=== PATIENT | female | born 1930 | race Caucasian/White ===

== ENCOUNTER → 2016-06-12 | Outpatient (CLI) | payer MEDICARE ==
--- NOTE | 2016-06-12 11:21 | XR ---
EXAMINATION TYPE: XR chest 2V DATE OF EXAM: 06/12/2016 10:48 AM COMPARISON: 09/24/2015 INDICATION: Short of breath, and carbon monoxide exposure TECHNIQUE: Single frontal view of the chest is obtained. FINDINGS: The heart size is enlarged. The pulmonary vasculature is normal. The lungs are clear. Degenerative changes are at the bilateral shoulders more so on the left. IMPRESSION: 1. Cardiomegaly.
== END | disposition home or self-care (01) ==
LOC: RADXRMAIN 10:31
PROVIDERS: ATTEND Internal Medicine
DX: I51.7 Cardiomegaly (principal); R06.02 Shortness of breath
CPT/HCPCS: 71020

== ENCOUNTER 2017-03-29 08:01 | Emergency (ER) | payer MEDICARE ==
[2017-03-29 08:18] VITALS: RESP 18
--- NOTE | 2017-03-29 08:29 | ED ---
General Adult HPI - General Chief complaint: Fall Stated complaint: FALL X 1 WEEK Time Seen by Provider: 03/29/17 08:13 Source: EMS, RN notes reviewed Mode of arrival: EMS Limitations: no limitations - History of Present Illness Initial comments: Patient is an 87-year-old female who presents emergency room today with a chief complaint of fall occurred one week ago. She states that she is currently in the process of moving to [place]. She states she's been carrying a lot of boxes. She does admit that she has some chronic left-sided weakness. She states that she's been going to physical therapy for this. She does not that she had a fall a week ago falling down on the left side. She states that she's been doing well over the last week but noticed that she's been having increased pain to the left hip area. She does admit that it's worse with certain movements with flexion at the left hip. She states seem to be worse today. Has been using Tylenol for the pain over the last week. Has not taken Tylenol yet today. She states she is comfortable when she is lying still. Denies any other complaints or injuries. Patient does admit that she is on blood thinner due to A. fib. Patient also admits to some pain to the left side of the ribs. She landed on the side as well. She denies any difficulty breathing. Denies any other complaints or symptoms. States worse with certain movements and on palpation. Patient denies any recent fever, chills, shortness of breath, chest pain, back pain, abdominal pain, nausea or vomiting, numbness or tingling, headaches or visual changes, or any other complaints. - Related Data Home Medications Medication Instructions Recorded Confirmed Diazepam [Valium] 2.5 mg PO HS 08/10/13 03/29/17 Multivitamin/Iron/Folic Acid 1 tab PO DAILY 08/10/13 03/29/17 [Centrum Complete Multivit Tab] amLODIPine BESYLATE [Norvasc] 5 mg PO DAILY 08/10/13 03/29/17 Imatinib Mesylate [Gleevec] 200 mg PO BID 04/24/14 03/29/17 Calcium Carb-Vit D 500Mg-200Un 1 tab PO BID 08/22/15 03/29/17 [Oscal 500+D] Acetaminophen Tab [Tylenol Tab] 500 mg PO BID 03/29/17 03/29/17 Apixaban [Eliquis] 2.5 mg PO BID 03/29/17 03/29/17 Bisacodyl [Dulcolax] 5 mg PO BID 03/29/17 03/29/17 Diclofenac Sodium/Misoprostol 1 tab PO DAILY 03/29/17 03/29/17 [Arthrotec 50 mg-200 Mcg Tab] Ferrous Sulfate [Feosol] 325 mg PO DAILY 03/29/17 03/29/17 Gabapentin [Neurontin] 100 mg PO DAILY 03/29/17 03/29/17 Previous Rx's Medication Instructions Recorded Psyllium Husk 100% [Metamucil 1 dose PO DAILY #0 04/30/14 Packet] Allergies Allergy/AdvReac Type Severity Reaction Status Date / Time Sulfa (Sulfonamide Allergy Severe Rapid Verified 03/29/17 08:31 Antibiotics) Heart Rate, high temperature Review of Systems ROS Statement: Those systems with pertinent positive or pertinent negative responses have been documented in the HPI. ROS Other: All systems not noted in ROS Statement are negative. 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 , melanoma, uses walker or wheelchair History of Any Multi-Drug Resistant Organisms: None Reported Past Surgical History: Back Surgery, Cholecystectomy, Hysterectomy, Orthopedic Surgery, Tonsillectomy Additional Past Surgical History / Comment(s): carpal tunnel marc, achilles tendon-rt, marc knee replacement, rt hip replacement, laminectomy, melanoma removed from back, left parotid gland, marc cataracts, nephrectomy Past Anesthesia/Blood Transfusion Reactions: Motion Sickness Past Psychological History: Anxiety Smoking Status: Never smoker Past Alcohol Use History: None Reported Past Drug Use History: None Reported - Past Family History Daughter(s) Family Medical History: Cancer Mother Family Medical History: Congestive Heart Failure (CHF) Additional Family Medical History / Comment(s): parkinsons General Exam - General Exam Comments Initial Comments: General: The patient is awake and alert, in no distress, and does not appear acutely ill. Neck: The neck is supple, there is no tenderness or JVD. Cardiovascular: There is a regular rate and rhythm. No murmur, rub or gallop is appreciated. Respiratory: Lungs are clear to auscultation, respirations are non-labored, breath sounds are equal. No wheezes, stridor, rales, or rhonchi. Musculoskeletal: Patient does have normal appearance of the left leg no obvious deformity. No swelling or bruising to the left side of ribs but is tender to palpation to the anterior lateral aspect of the left side of the lower ribs. Does have some mild tenderness into the groin and with a logroll maneuver of the left hip. No other bony tenderness. Sensations are intact pulses equal bilaterally 2+. Strength is 5/5. Neurological: A&O x 3. CN II-XII intact, There are no obvious motor or sensory deficits. Coordination appears grossly intact. Speech is normal. Skin: Skin is warm and dry and no rashes or lesions are noted. Psychiatric: Normal mood and affect. Limitations: no limitations Course Vital Signs 03/29/17 08:08 Temperature 97.4 F L Pulse Rate 57 L Respiratory 18 Rate Blood Pressure 183/83 O2 Sat by Pulse 99 Oximetry Medical Decision Making - Medical Decision Making Patient reexamined at this time shows no signs of distress. She is ambulatory here in emergency room. Patient's x-rays are negative. Will be discharged home advised continue Tylenol FAMILY doctor she has appointment Saturday. Advised return if any symptoms increase or worsen. Disposition Clinical Impression: Fall Disposition: HOME SELF-CARE Condition: Good Instructions: Fall Prevention (ED), Hip Pain (ED) Additional Instructions: Please use medication as discussed. Please follow-up with family doctor in the next 2 days of symptoms have not improved. Please return to emergency room if the symptoms increase or worsen or for any other concerns. Referrals: Oscar Martins MD [Primary Care Provider] - 1-2 days Time of Disposition: 10:13
--- NOTE | 2017-03-29 09:03 | XR ---
EXAMINATION TYPE: XR Hip LT and AP Pelvis DATE OF EXAM: 03/29/2017 COMPARISON: NONE HISTORY: Fall with left hip pain. TECHNIQUE: A single AP view of the pelvis is obtained. Two views of the left hip are obtained. FINDINGS: There is no acute fracture/dislocation evident in the pelvis. The overlying soft tissue appears unremarkable. Two views of left hip show no acute fracture or dislocation. No focal lytic or sclerotic lesion seen in the proximal left femur. Right hip arthroplasty is seen. Extensive degenerative changes of the l umbosacral junction are noted. Moderate arthropathy is noted of the left femoral acetabular joint. Th e overlying soft tissue is unremarkable. IMPRESSION: There is no acute fracture or dislocation in the pelvis or left hip.
--- NOTE | 2017-03-29 09:06 | XR ---
EXAMINATION TYPE: XR ribs LT w pa chest xray DATE OF EXAM: 03/29/2017 CLINICAL HISTORY: Fall and left-sided rib pain. TECHNIQUE: Single frontal view of the chest is obtained. Frontal and oblique views of the left ribs w ere also obtained. COMPARISON: 06/12/2016 FINDINGS: There is no focal air space opacity, pleural effusion, or pneumothorax seen. There is blanco ntration of the right hemidiaphragm. The cardiac silhouette size is within normal limits. No displace d fractures are seen of the osseous structures. Extensive degenerative changes are seen in the acromi o clavicular joints and glenohumeral joints. Generalized osseous demineralization is also noted. Ther e is a mild thoracic dextroconvex curvature. Cardiac silhouette is mildly enlarged. IMPRESSION: 1. No acute cardiopulmonary process. 2. No acute displaced fractures of the osseous structures.
[2017-03-29] MEDS ORDERED: ACETAMINOPHEN TAB 325 MG TAB PO STA (09:33)
[2017-03-29 10:45] VITALS: BP 135/65; PULSE 55; TEMP 97.3
== END 2017-03-29 10:44 | disposition home or self-care (01) ==
LOC: EC 08:01
DX: R07.81 Pleurodynia (principal); M25.552 Pain in left hip; R10.30 Lower abdominal pain, unspecified; R53.1 Weakness; I48.91 Unspecified atrial fibrillation; I10 Essential (primary) hypertension; M19.90 Unspecified osteoarthritis, unspecified site; F41.9 Anxiety disorder, unspecified; G62.9 Polyneuropathy, unspecified; Z86.73 Personal history of transient ischemic attack (TIA), and cerebral infarction without residual deficits; Z85.820 Personal history of malignant melanoma of skin; Z85.6 Personal history of leukemia; Z85.528 Personal history of other malignant neoplasm of kidney; Z79.1 Long term (current) use of non-steroidal anti-inflammatories (NSAID); Z79.01 Long term (current) use of anticoagulants; Z79.899 Other long term (current) drug therapy; Z88.2 Allergy status to sulfonamides; Z96.641 Presence of right artificial hip joint; W18.09XA Striking against other object with subsequent fall, initial encounter; Y92.009 Unspecified place in unspecified non-institutional (private) residence as the place of occurrence of the external cause
CPT/HCPCS: 73502; 99283

== ENCOUNTER 2017-04-05 12:11 | Inpatient (IN) | payer MEDICARE ==
[2017-04-05] MEDS ORDERED: traMADol 50 MG TAB PO PRN (12:51)
[2017-04-05] MEDS ORDERED: HYDROmorphone 0.5 MG/0.5 ML SYRINGE IVP PRN (12:52)
--- NOTE | 2017-04-05 13:23 | XR ---
EXAMINATION TYPE: XR lumbosacral spine min 4V DATE OF EXAM: 04/05/2017 COMPARISON: NONE HISTORY: Low back pain left hip pain following fall TECHNIQUE: Five-view lumbar spine FINDINGS: Scoliosis present. Degenerative disc changes and vacuum disc phenomenon are present L1-2 L2 -3 L4-5. There is loss of disc height L3-4. Loss of vertebral body height is present L2. Pedicles lois ear intact. Facets have limited evaluation due to degree of rotation during the examination. No retro listhesis is evident. Some spondylosis is evident. IMPRESSION: 1. Advanced degenerative disc changes and scoliosis to the lumbar spine. Acute osseous abnormality i s not identified.
[2017-04-05 13:58] LABS: Basophils % (A) 1 %; Eosinophils # (A) 0.2 k/uL (0-0.7); Eosinophils % (A) 3 %; HCT 40.1 % (34.0-46.0); HGB 12.5 gm/dL (11.4-16.0); Lymphocytes # (A) 1.6 k/uL (1.0-4.8); Lymphocytes % (A) 26 %; MCH 31.2 pg (25.0-35.0); MCHC 31.3 g/dL (31.0-37.0); MCV 99.6 fL (80.0-100.0); Mean Platelet Volume 6.3; Monocytes # (A) 0.4 k/uL (0-1.0); Monocytes % (A) 7 %; Neutrophils # (A) 3.8 k/uL (1.3-7.7); Neutrophils % (A) 62 %; Platelet Count 242 k/uL (150-450); RBC 4.03 m/uL (3.80-5.40); RDW 12.4 % (11.5-15.5); WBC 6.2 k/uL (3.8-10.6)
[2017-04-05 14:08] LABS: ALT 20 U/L (9-52); AST 32 U/L (14-36); Albumin 4.1 g/dL (3.5-5.0); Alkaline Phosphatase 79 U/L (38-126); Anion Gap 11 mmol/L; Blood Urea Nitrogen 19 mg/dL (7-17); Calcium 9.8 mg/dL (8.4-10.2); Carbon Dioxide 32 mmol/L (22-30); Chloride 95 mmol/L (98-107); Glucose 95 mg/dL (74-99); Potassium 4.1 mmol/L (3.5-5.1); Sodium 138 mmol/L (137-145); Total Bilirubin 0.4 mg/dL (0.2-1.3); Total Protein 6.9 g/dL (6.3-8.2)
[2017-04-05] MEDS: traMADol 50 MG TAB PO PRN ×2 (14:24→20:43)
--- NOTE | 2017-04-05 14:32 | P.CONS ---
History of Present Illness - Reason for Consult Consult date: 04/05/17 Medical management Requesting physician: Christoph Hinojosa - Chief Complaint Left leg pain - History of Present Illness This is a 87-year-old female with a known history of atrial fibrillation, CML, TIA, hypertension and migraines. Patient is a direct admit from orthopedic office. We've been consulted for medical management. Apparently a few weeks ago patient had a fall. She was helped up by her cleaning service. She was doing well and then about a week later she started having severe pain in that left leg. Pain continued to progress. She went to the emergency room last Saturday. X-ray of the left hip and pelvis completed no evidence of fracture. And she was sent home. Patient was seen by the visiting home nurse and recommended that he cc be seen by the orthopedic doctor. She was evaluated by Dr. Hinojosa today and he recommended that she admitted to the hospital for further workup. MRI of the hip pelvis and a bone scan have been ordered. Patient's pain does radiate down the left leg. She also has some numbness. She's been having difficulty with walking. She denies any chest pain or shortness of breath, nausea or vomiting, bowel movement changes or urinary symptoms. Denies any fever chills or sweats. Denies any cough or congestion. 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 , melanoma, uses walker or wheelchair History of Any Multi-Drug Resistant Organisms: None Reported Past Surgical History: Back Surgery, Cholecystectomy, Hysterectomy, Orthopedic Surgery, Tonsillectomy Additional Past Surgical History / Comment(s): carpal tunnel marc, achilles tendon-rt, marc knee replacement, rt hip replacement, laminectomy, melanoma removed from back, left parotid gland, marc cataracts, nephrectomy Past Anesthesia/Blood Transfusion Reactions: Motion Sickness Past Psychological History: Anxiety Smoking Status: Never smoker Past Alcohol Use History: None Reported Past Drug Use History: None Reported - Past Family History Daughter(s) Family Medical History: Cancer Mother Family Medical History: Congestive Heart Failure (CHF) Additional Family Medical History / Comment(s): parkinsons Medications and Allergies Home Medications Medication Instructions Recorded Confirmed Type Diazepam [Valium] 2.5 mg PO HS 08/10/13 03/29/17 History Multivitamin/Iron/Folic Acid 1 tab PO DAILY 08/10/13 03/29/17 History [Centrum Complete Multivit Tab] amLODIPine BESYLATE [Norvasc] 5 mg PO DAILY 08/10/13 03/29/17 History Imatinib Mesylate [Gleevec] 200 mg PO BID 04/24/14 03/29/17 History Psyllium Husk 100% [Metamucil 1 dose PO DAILY #0 04/30/14 03/29/17 Rx Packet] Calcium Carb-Vit D 500Mg-200Un 1 tab PO BID 08/22/15 03/29/17 History [Oscal 500+D] Acetaminophen Tab [Tylenol Tab] 500 mg PO BID 03/29/17 03/29/17 History Apixaban [Eliquis] 2.5 mg PO BID 03/29/17 03/29/17 History Bisacodyl [Dulcolax] 5 mg PO BID 03/29/17 03/29/17 History Diclofenac Sodium/Misoprostol 1 tab PO DAILY 03/29/17 03/29/17 History [Arthrotec 50 mg-200 Mcg Tab] Ferrous Sulfate [Feosol] 325 mg PO DAILY 03/29/17 03/29/17 History Gabapentin [Neurontin] 100 mg PO DAILY 03/29/17 03/29/17 History Allergies Allergy/AdvReac Type Severity Reaction Status Date / Time Sulfa (Sulfonamide Allergy Severe Rapid Verified 03/29/17 08:31 Antibiotics) Heart Rate, high temperature Physical Exam Vitals: Vital Signs Temp Pulse Resp BP Pulse Ox 04/05/17 13:38 97.9 F 62 15 180/71 100 Intake and Output 04/04/17 04/05/17 04/05/17 22:59 06:59 14:59 Other: # Voids 1 Weight 62.142 kg Patient Weight 04/06/17 06:59 Weight 62.142 kg Head normocephalic Neck supple Lungs clear to auscultation bilaterally no wheezing or crackles Heart regular rate and rhythm S1-S2, no rub or gallop Abdomen is soft nontender nondistended positive bowel sounds no hepatosplenomegaly Extremities no edema. No discoloration. Tender with movement. Having patient name forward in the bed causes pain in the left leg Neuro alert and orientated to 3 Results CBC & Chem 7: 04/05/17 13:42 04/05/17 13:42 Labs: Abnormal Lab Results - Last 24 Hours (Table) 04/05/17 Range/Units 13:42 Chloride 95 L (98-107) mmol/L Carbon Dioxide 32 H (22-30) mmol/L BUN 19 H (7-17) mg/dL Assessment and Plan Assessment: 1. Left hip and leg pain: Orthopedic workup in progress. MRI of the left hip pelvis and a bone scan have been ordered. Continue with the Dilaudid and tramadol as needed for pain control 2. Mild dehydration on admission we'll start normal saline at 50 mL an hour 3. History of atrial fibrillation: On Eliquis at home 4. History of chronic myeloid leukemia resume Gleevac 5. History of TIAs 6. History of essential hypertension: Initial blood pressure elevated on admission likely related to pain. We'll monitor closely and make further adjustments in blood pressure medications if needed Awaiting patient's home medications to be reviewed by pharmacist before restarting. Thank you for this consultation. We will continue to follow along with you. Time with Patient: Greater than 30 (Greater than 50% of the total time spent in counseling and coordination of care.I performed an examination of the patient and discussed their management with the physician Security Flex Officer. I have reviewed the Physician Security Flex Officer's notes and agree with the documented findings and plan of care)
[2017-04-05 14:43] LABS: C Reactive Protein <5.0 mg/L (<10.0)
[2017-04-05 15:13] LABS: Erythrocyte Sedimentation Rate 16 mm/hr (0-20)
[2017-04-05] MEDS: SODIUM CHLORIDE 0.9% 1,000 ML IV SCH (15:24)
[2017-04-05] MEDS: BISACODYL 5 MG TABLET.DR PO SCH (20:42)
[2017-04-05] MEDS: METOPROLOL TARTRATE 50 MG TAB PO SCH (20:42)
[2017-04-05] MEDS: APIXABAN 2.5 MG TABLET PO SCH (20:42)
[2017-04-05] MEDS: CALCIUM CARB-VIT D 500MG-200UN 1 EACH TAB PO SCH (20:42)
[2017-04-05] MEDS: IMATINIB MESYLATE 100 MG PO SCH (20:43)
--- NOTE | 2017-04-05 21:44 | MR ---
EXAMINATION TYPE: MR hip LT wo con DATE OF EXAM: 04/05/2017 COMPARISON: NONE HISTORY: Lt hip pain, r/o fracture, to include pelvis per ordering physician CONTRAST: Performed utilizing 0 mL intravenous Gadavist gadolinium contrast. TECHNIQUE: Multiplanar, multiecho imaging on a 3.0 Kandace magnet is performed through the pelvis with attention to the left hip. Study is performed within 24 hours of arrival to the hospital. Findings: There is a right hip prosthesis with susceptibility artifact on the right creating limitati on and distortion within the pelvis. Urinary bladder appears unremarkable. Osseous structures are evaluated. No abnormal increased signal to suggest edema or contusion is evide nt. Left femoral head articulates with the acetabulum. No suspicious signal abnormality to suggest fr acture of the left tip is evident. No significant joint effusion is evident. There is signal change w ithin the quadriceps. Additionally, there appears to be some focal increased signal within the hamstr ings near the posterior lesser trochanter. Correlate for contusion or injury. No hematoma is evident. Some lateral soft tissue swelling may be present with some minimal edema lateral to the greater troc hanter of the hip. No bursal fluid collection is evident. IMPRESSIONS: 1. No suspicious changes to suggest left hip fracture. Visualized portions of the pelvis appear intac t. 2. There may be some muscle strain or injury within the quadriceps and hamstrings posterior to the le sser trochanter as well as lateral soft tissue swelling. Correlate with the clinical symptoms.
[2017-04-05] MEDS: DIAZEPAM 5 MG TAB PO SCH (22:05)
[2017-04-06] MEDS: traMADol 50 MG TAB PO PRN ×3 (02:05→15:23)
[2017-04-06] MEDS: APIXABAN 2.5 MG TABLET PO SCH ×3 (06:12→21:10)
[2017-04-06 07:39] LABS: Basophils % (A) 0 %; Eosinophils # (A) 0.2 k/uL (0-0.7); Eosinophils % (A) 3 %; HCT 34.5 % (34.0-46.0); Lymphocytes # (A) 1.1 k/uL (1.0-4.8); Lymphocytes % (A) 20 %; MCH 31.6 pg (25.0-35.0); MCHC 31.8 g/dL (31.0-37.0); MCV 99.2 fL (80.0-100.0); Mean Platelet Volume 6.5; Monocytes # (A) 0.4 k/uL (0-1.0); Monocytes % (A) 6 %; Neutrophils # (A) 3.8 k/uL (1.3-7.7); Neutrophils % (A) 68 %; Platelet Count 225 k/uL (150-450); RBC 3.48 m/uL (3.80-5.40); RDW 12.5 % (11.5-15.5); WBC 5.6 k/uL (3.8-10.6)
[2017-04-06 07:48] LABS: ALT 24 U/L (9-52); AST 29 U/L (14-36); Albumin 3.3 g/dL (3.5-5.0); Alkaline Phosphatase 59 U/L (38-126); Anion Gap 9 mmol/L; Blood Urea Nitrogen 15 mg/dL (7-17); Calcium 9.1 mg/dL (8.4-10.2); Carbon Dioxide 27 mmol/L (22-30); Chloride 96 mmol/L (98-107); Glucose 86 mg/dL (74-99); Potassium 4.1 mmol/L (3.5-5.1); Sodium 132 mmol/L (137-145); Total Bilirubin 0.5 mg/dL (0.2-1.3); Total Protein 5.8 g/dL (6.3-8.2)
--- NOTE | 2017-04-06 09:20 | P.HPOR ---
History of Present Illness H&P Date: 04/06/17 Chief Complaint: Left hip and groin pain The patient is a 87-year-old female who was admitted directly from our office yesterday. She presented to our office with left hip pain after sustaining a fall at home. X-rays were negative in our office but the patient is unable to bear weight on the left leg and was having difficulty at home with ambulation. The patient was admitted for further evaluation and for rehab placement. An MRI of the left hip and pelvis was ordered yesterday. A bone scan was also ordered and scheduled for today. We have consulted internal medicine for management of her medical issues. The patient does have a history of bilateral knee and right hip replacements. Today, the patient states that she was having muscle spasms in her left thigh last night. She believes that heat relieves the pain. She has no other complaints at this time. She denies fever, chills, rigors, shortness of breath, chest pain, and abdominal pain this morning. Review of Systems Constitutional: Denies chills, Denies fever, Denies lethargy Cardiovascular: Denies chest pain, Denies shortness of breath Respiratory: Denies cough Gastrointestinal: Denies diarrhea, Denies nausea, Denies vomiting Musculoskeletal: left: hip pain, hip stiffness Integumentary: Denies wounds Neurological: Denies syncope Past Medical History Past Medical History: Atrial Fibrillation, Cancer, CVA/TIA, GERD/Reflux, Hearing Disorder / Deafness, Hyperlipidemia, Hypertension, Osteoarthritis (OA), Pneumonia Additional Past Medical History / Comment(s): CML, melanoma with removal from back, R renal cancer with numerous procedures and then R nephrectomy/uretectomy , R paratid warthins tumor with removal, TIAs x 2, migraines, urine leakage, constipation. History of Any Multi-Drug Resistant Organisms: None Reported Past Surgical History: Back Surgery, Cholecystectomy, Hysterectomy, Joint Replacement, Orthopedic Surgery, Tonsillectomy Additional Past Surgical History / Comment(s): Numerous procedures for R kidney cancer then eventual R nephrectomy/ureterectomy in 2016 at [facility], bilateral knee arthroscopies then arthroplasties, R hip total hip arthroplasty, back surgery to remove "chips", colonoscopy, melanoma removed from back, D&C, FNA L paratid then removal, bilateral cataract removal, L achillies tendon surgery. Past Anesthesia/Blood Transfusion Reactions: Motion Sickness Additional Past Anesthesia/Blood Transfusion Reaction / Comment(s): Pt states she is slow to wake after general anesthesia. Smoking Status: Never smoker - Past Family History Daughter(s) Family Medical History: Cancer Additional Family Medical History / Comment(s): Daughter from colon cancer Mother Family Medical History: Congestive Heart Failure (CHF), Musculoskeletal Disorder , Neurologic Disorder Additional Family Medical History / Comment(s): parkinsons Medications and Allergies Home Medications Medication Instructions Recorded Confirmed Type Multivitamin/Iron/Folic Acid 1 tab PO DAILY 08/10/13 04/05/17 History [Centrum Complete Multivit Tab] amLODIPine BESYLATE [Norvasc] 5 mg PO DAILY 08/10/13 04/05/17 History Imatinib Mesylate [Gleevec] 200 mg PO BID 04/24/14 04/05/17 History Calcium Carb-Vit D 500Mg-200Un 1 tab PO BID 08/22/15 04/05/17 History [Oscal 500+D] Acetaminophen Tab [Tylenol Tab] 500 mg PO BID 03/29/17 04/05/17 History Apixaban [Eliquis] 2.5 mg PO BID 03/29/17 04/05/17 History Bisacodyl [Dulcolax] 5 mg PO BID 03/29/17 04/05/17 History Ferrous Sulfate [Feosol] 325 mg PO DAILY 03/29/17 04/05/17 History Gabapentin [Neurontin] 100 mg PO DAILY 03/29/17 04/05/17 History Diazepam [Valium] 2.5 mg PO HS 04/05/17 04/05/17 History HYDROcodone/APAP 5-325MG [[place] 1 tab PO Q6HR PRN 04/05/17 04/05/17 History 5-325] Metoprolol Tartrate [Lopressor] 50 mg PO HS 04/05/17 04/05/17 History Psyllium Husk 100% [Metamucil 6 gm PO DAILY 04/05/17 04/05/17 History Packet] Allergies Allergy/AdvReac Type Severity Reaction Status Date / Time Sulfa (Sulfonamide Allergy Severe Rapid Verified 04/05/17 14:34 Antibiotics) Heart Rate, high temperature Physical Examination The patient is an 87 year old female that is no acute distress. She is alert and oriented x3. The patient's head is normocephalic and atraumatic. Exam of the cervical spine reveals no pain upon palpation or range of motion. Exam of the bilateral upper extremities reveal no obvious deformities or pain upon range of motion. Exam of the right lower extremity reveals no pain upon palpation. Exam of the left lower extremity reveals no obvious deformity No pain upon palpation to the lateral hip. There is pain upon logrolling and any range of motion of the leg. There is pain to palpation to the inner thigh and groin. Bilateral calves are soft and nontender. Patient has good foot and ankle motion bilaterally. Neurological and circulatory status is intact. Results - Labs Labs: Abnormal Lab Results - Last 24 Hours (Table) 04/05/17 04/06/17 04/06/17 Range/Units 13:42 06:55 06:55 RBC 3.48 L (3.80-5.40) m/uL Hgb 11.0 L (11.4-16.0) gm/dL Sodium 132 L (137-145) mmol/L Chloride 95 L 96 L (98-107) mmol/L Carbon Dioxide 32 H (22-30) mmol/L BUN 19 H (7-17) mg/dL Total Protein 5.8 L (6.3-8.2) g/dL Albumin 3.3 L (3.5-5.0) g/dL H & H 04/05/17 04/06/17 Range/Units 13:42 06:55 Hgb 12.5 11.0 L (11.4-16.0) gm/dL Hct 40.1 34.5 (34.0-46.0) % Result Diagrams: 04/06/17 06:55 04/06/17 06:55 - Diagnostic results Hip x-ray: other (X-rays obtained in our office revealed no fractures or bone lesions.) Hip MRI: image reviewed (No fractures seen.) Assessment and Plan (1) Fall Current Visit: No Status: Acute Code(s): W19.XXXA - UNSPECIFIED FALL, INITIAL ENCOUNTER SNOMED Code(s): 1173147 (2) Left hip pain Current Visit: Yes Status: Acute Code(s): M25.552 - PAIN IN LEFT HIP SNOMED Code(s): 33584738 (3) Muscle strain of left lower extremity Current Visit: Yes Status: Acute Code(s): S86.912A - STRAIN OF UNSP MUSC/ TEND AT LOWER LEG LEVEL, LEFT LEG, INIT SNOMED Code(s): 163835372 Plan: The clinical and MRI findings were discussed with the patient. The patient will undergo a bone scan today. She will be evaluated by physical and occupational therapy for rehab placement. She will likely be discharged to skilled rehab on Saturday or Saturday. Continue pain control. We will add Flexeril for muscle spasms and a K pad to be applied to the left thigh. We will continue to follow patient closely and make further recommendations as needed.
[2017-04-06] MEDS: MULTIVITAMINS, THERA 1 EACH TAB PO SCH (10:04)
[2017-04-06] MEDS: BISACODYL 5 MG TABLET.DR PO SCH ×2 (10:05→21:10)
[2017-04-06] MEDS: amLODIPine 5 MG TAB PO SCH (10:05)
[2017-04-06] MEDS: GABAPENTIN 100 MG CAP PO SCH (10:05)
[2017-04-06] MEDS: CALCIUM CARB-VIT D 500MG-200UN 1 EACH TAB PO SCH ×2 (10:05→21:09)
[2017-04-06] MEDS: FERROUS SULFATE 325 MG TAB PO SCH (10:05)
[2017-04-06] MEDS: IMATINIB MESYLATE 100 MG PO SCH ×3 (10:29→21:09)
--- NOTE | 2017-04-06 12:21 | NM ---
EXAMINATION TYPE: NM bone scan whole body DATE OF EXAM: 04/06/2017 COMPARISON: NONE HISTORY: Left hip pain Delayed whole-body scanning was performed following the injection of 26 mCi Tc 99m MDP. Images acqui red 3 hours post injection. FINDINGS: There is evidence of a right hip prosthesis. There is no abnormal uptake about the left hip . There is some abnormal uptake in the costochondral junctions on the left. These are believed to be in the left fourth and fifth ribs. There is a moderately severe levoscoliosis in the lumbar region. IMPRESSION: 1. NO ABNORMAL ACTIVITY ABOUT THE LEFT HIP. 2. POSTTRAUMATIC ACTIVITY IN THE LEFT COSTOCHONDRAL JUNCTIONS OF THE FOURTH AND FIFTH RIBS. 3. MODERATELY SEVERE LEVOSCOLIOSIS.
--- NOTE | 2017-04-06 12:49 | P.PN ---
Subjective Progress Note Date: 04/06/17 Principal diagnosis: left lower extremity pain This is a 87-year-old female with a known history of atrial fibrillation, CML, TIA, hypertension and migraines. Patient is a direct admit from orthopedic office. We've been consulted for medical management. Apparently a few weeks ago patient had a fall. She was helped up by her cleaning service. She was doing well and then about a week later she started having severe pain in that left leg. Pain continued to progress. She went to the emergency room last Saturday. X-ray of the left hip and pelvis completed no evidence of fracture. And she was sent home. Patient was seen by the visiting home nurse and recommended that he cc be seen by the orthopedic doctor. She was evaluated by Dr. Hinojosa today and he recommended that she admitted to the hospital for further workup. MRI of the hip pelvis and a bone scan have been ordered. Patient's pain does radiate down the left leg. She also has some numbness. She's been having difficulty with walking. She denies any chest pain or shortness of breath, nausea or vomiting, bowel movement changes or urinary symptoms. Denies any fever chills or sweats. Denies any cough or congestion. 04/06/2017 patient is alert and oriented 3 she is still complaining of pain in the left lower extremity MRI and bones scan results discussed with patient and her daughter At this time will proceed was left lower extremity Doppler to rule out DVT continue with current medications Objective - Vital Signs Vital signs: Vital Signs Temp 98.2 F 04/06/17 07:00 Pulse 63 04/06/17 07:00 Resp 16 04/06/17 07:00 BP 158/83 04/06/17 07:00 Pulse Ox 99 04/06/17 07:00 Intake & Output 04/05/17 04/06/17 04/06/17 18:59 06:59 18:59 Intake Total 1100 Balance 1100 Weight 62.142 kg Intake: Intake, IV Titration 100 Amount Sodium Chloride 0.9% 1, 100 000 ml @ 50 mls/hr IV . Q20H [facility] Rx#:[id number] Oral 1000 Other: Voiding Method Bedside Commode # Voids 1 1 - Exam Head normocephalic and atraumatic Neck supple no JVD no goiter Lungs clear to auscultation bilaterally no wheezing or crackles Heart regular rate and rhythm S1-S2, no rub or gallop Abdomen is soft nontender nondistended positive bowel sounds no hepatosplenomegaly Extremities no edema. No discoloration. Tender with movement. Having patient name forward in the bed causes pain in the left leg Neuro alert and orientated to 3 - Labs CBC & Chem 7: 04/06/17 06:55 04/06/17 06:55 Labs: Abnormal Lab Results - Last 24 Hours (Table) 04/05/17 04/06/17 04/06/17 Range/Units 13:42 06:55 06:55 RBC 3.48 L (3.80-5.40) m/uL Hgb 11.0 L (11.4-16.0) gm/dL Sodium 132 L (137-145) mmol/L Chloride 95 L 96 L (98-107) mmol/L Carbon Dioxide 32 H (22-30) mmol/L BUN 19 H (7-17) mg/dL Total Protein 5.8 L (6.3-8.2) g/dL Albumin 3.3 L (3.5-5.0) g/dL Assessment and Plan Plan: 1. Left hip and leg pain: Orthopedic workup in progress. MRI of the left hip pelvis and a bone scan have been ordered. Continue with the Dilaudid and tramadol as needed for pain control So far no evidence of bone fracture with check Doppler to rule out DVT 2. Mild dehydration on admission we'll start normal saline at 50 mL an hour 3. History of atrial fibrillation: On Eliquis at home 4. History of chronic myeloid leukemia resume Gleevac 5. History of TIAs 6. History of essential hypertension: Initial blood pressure elevated on admission likely related to pain. We'll monitor closely and make further adjustments in blood pressure medications if needed
[2017-04-06] MEDS: CYCLOBENZAPRINE 5 MG TAB PO PRN ×2 (14:43→21:09)
--- NOTE | 2017-04-06 15:46 | US ---
EXAMINATION TYPE: US venous doppler duplex LE LT DATE OF EXAM: 04/06/2017 2:13 PM COMPARISON: NONE CLINICAL HISTORY: leg pain. SIDE PERFORMED: Left TECHNIQUE: The lower extremity deep venous system is examined utilizing real time linear array sonog [place] with graded compression, doppler sonography and color-flow sonography. VESSELS IMAGED: External Iliac Vein (EIV) Common Femoral Vein Deep Femoral Vein Greater Saphenous Vein * Femoral Vein Popliteal Vein Small Saphenous Vein * Proximal Calf Veins (* superficial vessels) Left Leg: Negative for DVT IMPRESSION: Grayscale, color doppler, spectral doppler imaging performed of the deep veins of the lo wer extremities. There is normal flow, compressibility, vascular waveforms.
[2017-04-06] MEDS: SODIUM CHLORIDE 0.9% 1,000 ML IV SCH (17:32)
[2017-04-06] MEDS: PSYLLIUM HUSK 100% 6 GM PACKET PO SCH (17:32)
[2017-04-06] MEDS: HYDROcodone/APAP 5-325MG 1 EACH TAB PO PRN (19:06)
[2017-04-06] MEDS: METOPROLOL TARTRATE 50 MG TAB PO SCH (21:10)
[2017-04-06] MEDS: DIAZEPAM 5 MG TAB PO SCH (21:12)
[2017-04-07] MEDS: HYDROcodone/APAP 5-325MG 1 EACH TAB PO PRN ×2 (06:45→13:24)
--- NOTE | 2017-04-07 08:21 | P.PN ---
Subjective Progress Note Date: 04/07/17 Principal diagnosis: Left hip and groin pain The patient is a 87 year old female who was directly admitted from our office on Saturday. She presented to our office with left hip pain after sustaining a fall at home. X-rays were negative for fracture but she was unable to bear weight. An MRI and bone scan had been obtained to rule out fracture. Those tests were negative for fracture. Today, she states that she is still having pain and spasms in her left thigh. The pain medications seem to help the pain. She denies fever, chills, rigors, abdominal pain, shortness of breath, chest pain today. Objective - Vital Signs Vital signs: Vital Signs Temp 96.6 F L 04/07/17 02:40 Pulse 61 04/07/17 02:40 Resp 18 04/07/17 02:40 BP 147/67 04/07/17 02:40 Pulse Ox 99 04/07/17 02:40 Intake & Output 04/06/17 04/07/17 04/07/17 18:59 06:59 18:59 Intake Total 400 Balance 400 Intake: Intake, IV Titration 400 Amount Sodium Chloride 0.9% 1, 400 000 ml @ 50 mls/hr IV . Q20H [facility] Rx#:[id number] Other: Voiding Method Bedside Commode # Voids 0 - Exam The patient is an 87-year-old female who is in no acute distress. She is alert and oriented 3. Exam of the left lower extremity reveals no pain to the lateral hip. There is pain upon any range of motion of the leg. There is pain to palpation to the inner thigh and groin. Calf is soft and nontender. She has good foot and ankle motion. Neurological and circulatory status is intact. - Labs CBC & Chem 7: 04/06/17 06:55 04/07/17 07:27 Assessment and Plan (1) Fall Current Visit: No Status: Acute Code(s): W19.XXXA - UNSPECIFIED FALL, INITIAL ENCOUNTER SNOMED Code(s): 3938491 (2) Left hip pain Current Visit: Yes Status: Acute Code(s): M25.552 - PAIN IN LEFT HIP SNOMED Code(s): 61880298 (3) Muscle strain of left lower extremity Current Visit: Yes Status: Acute Code(s): S86.912A - STRAIN OF UNSP MUSC/ TEND AT LOWER LEG LEVEL, LEFT LEG, INIT SNOMED Code(s): 991868945 Plan: The clinical, MRI, and bone scan findings were discussed with the patient. She will be evaluated by physical and occupational therapy for rehab placement. She will likely be discharged to skilled rehab on Saturday or Saturday. Continue pain control. We will continue to follow patient closely and make further recommendations as needed.
[2017-04-07 08:22] LABS: ALT 26 U/L (9-52); AST 31 U/L (14-36); Albumin 3.8 g/dL (3.5-5.0); Alkaline Phosphatase 63 U/L (38-126); Anion Gap 12 mmol/L; Blood Urea Nitrogen 13 mg/dL (7-17); Calcium 9.4 mg/dL (8.4-10.2); Carbon Dioxide 30 mmol/L (22-30); Chloride 93 mmol/L (98-107); Glucose 101 mg/dL (74-99); Sodium 135 mmol/L (137-145); Total Bilirubin 0.6 mg/dL (0.2-1.3); Total Protein 6.4 g/dL (6.3-8.2)
[2017-04-07] MEDS: SODIUM CHLORIDE 0.9% 1,000 ML IV SCH (08:30)
[2017-04-07] MEDS: FERROUS SULFATE 325 MG TAB PO SCH (08:31)
[2017-04-07] MEDS: CALCIUM CARB-VIT D 500MG-200UN 1 EACH TAB PO SCH ×2 (08:31→20:31)
[2017-04-07] MEDS: GABAPENTIN 100 MG CAP PO SCH (08:31)
[2017-04-07] MEDS: BISACODYL 5 MG TABLET.DR PO SCH ×2 (08:31→20:31)
[2017-04-07] MEDS: IMATINIB MESYLATE 100 MG PO SCH ×2 (08:31→20:29)
[2017-04-07] MEDS: amLODIPine 5 MG TAB PO SCH (08:31)
[2017-04-07] MEDS: MULTIVITAMINS, THERA 1 EACH TAB PO SCH (08:31)
[2017-04-07] MEDS: APIXABAN 2.5 MG TABLET PO SCH ×2 (08:31→20:31)
[2017-04-07] MEDS: PSYLLIUM HUSK 100% 6 GM PACKET PO SCH (08:34)
[2017-04-07 08:40] LABS: Basophils % (A) 0 %; Eosinophils # (A) 0.2 k/uL (0-0.7); Eosinophils % (A) 2 %; HCT 37.5 % (34.0-46.0); HGB 11.6 gm/dL (11.4-16.0); Lymphocytes # (A) 1.7 k/uL (1.0-4.8); Lymphocytes % (A) 22 %; MCH 30.7 pg (25.0-35.0); MCHC 30.9 g/dL (31.0-37.0); MCV 99.2 fL (80.0-100.0); Mean Platelet Volume 6.3; Monocytes # (A) 0.5 k/uL (0-1.0); Monocytes % (A) 7 %; Neutrophils # (A) 5.3 k/uL (1.3-7.7); Neutrophils % (A) 68 %; Platelet Count 270 k/uL (150-450); RBC 3.78 m/uL (3.80-5.40); RDW 12.5 % (11.5-15.5); WBC 7.8 k/uL (3.8-10.6)
[2017-04-07] MEDS ORDERED: RX INFO: IV CONTRAST WAS GIVEN 1 EACH MISC MISCELLANE PRN (11:28)
--- NOTE | 2017-04-07 11:32 | P.PN ---
Subjective Progress Note Date: 04/07/17 This is a 87-year-old female with a known history of atrial fibrillation, CML, TIA, hypertension and migraines. Patient is a direct admit from orthopedic office. We've been consulted for medical management. Apparently a few weeks ago patient had a fall. She was helped up by her cleaning service. She was doing well and then about a week later she started having severe pain in that left leg. Pain continued to progress. She went to the emergency room last Saturday. X-ray of the left hip and pelvis completed no evidence of fracture. And she was sent home. Patient was seen by the visiting home nurse and recommended that he cc be seen by the orthopedic doctor. She was evaluated by Dr. Hinojosa today and he recommended that she admitted to the hospital for further workup. MRI of the hip pelvis and a bone scan have been ordered. Patient's pain does radiate down the left leg. She also has some numbness. She's been having difficulty with walking. She denies any chest pain or shortness of breath, nausea or vomiting, bowel movement changes or urinary symptoms. Denies any fever chills or sweats. Denies any cough or congestion. 04/06/2017 patient is alert and oriented 3 she is still complaining of pain in the left lower extremity MRI and bones scan results discussed with patient and her daughter At this time will proceed was left lower extremity Doppler to rule out DVT continue with current medications On 04/07/2017 patient is alert and oriented 3 in no apparent distress she is still complaining of severe pain in the left groin area, radiating to her left lower extremity all tests so far are negative including MRI of the left hip and left lower extremity Doppler, today patient is stating that she is having pain in the left groin when she coughs, possibility of hernia was discussed with the patient will proceed with computed tomography scan of the abdomen and pelvis with contrast for further evaluation Objective - Vital Signs Vital signs: Vital Signs Temp 97.6 F 04/07/17 07:00 Pulse 69 04/07/17 07:00 Resp 14 04/07/17 07:00 BP 149/68 04/07/17 07:00 Pulse Ox 95 04/07/17 07:00 Intake & Output 04/06/17 04/07/17 04/07/17 18:59 06:59 18:59 Intake Total 400 240 Balance 400 240 Intake: Intake, IV Titration 400 Amount Sodium Chloride 0.9% 1, 400 000 ml @ 50 mls/hr IV . Q20H [facility] Rx#:[id number] Oral 240 Other: Voiding Method Bedside Commode # Voids 0 - Exam Head normocephalic and atraumatic Neck supple no JVD no goiter Lungs clear to auscultation bilaterally no wheezing or crackles Heart regular rate and rhythm S1-S2, no rub or gallop Abdomen is soft nontender nondistended positive bowel sounds no hepatosplenomegaly Extremities no edema. No discoloration. Tender with movement. Having patient name forward in the bed causes pain in the left leg Neuro alert and orientated to 3 - Labs CBC & Chem 7: 04/07/17 07:27 04/07/17 07:27 Labs: Abnormal Lab Results - Last 24 Hours (Table) 04/07/17 04/07/17 Range/Units 07:27 07:27 RBC 3.78 L (3.80-5.40) m/uL MCHC 30.9 L (31.0-37.0) g/dL Sodium 135 L (137-145) mmol/L Chloride 93 L (98-107) mmol/L Glucose 101 H (74-99) mg/dL Assessment and Plan Plan: 1. Left hip and leg pain: Orthopedic workup in progress. MRI of the left hip pelvis and a bone scan have been ordered. Continue with the Dilaudid and tramadol as needed for pain control So far no evidence of bone fracture with check Doppler to rule out DVT 2. Mild dehydration on admission we'll start normal saline at 50 mL an hour 3. History of atrial fibrillation: On Eliquis at home 4. History of chronic myeloid leukemia resume Gleevac 5. History of TIAs 6. History of essential hypertension: Initial blood pressure elevated on admission likely related to pain. We'll monitor closely and make further adjustments in blood pressure medications if needed
[2017-04-07] MEDS: IOHEXOL 350 MG/ML 25 ML BOTTLE (ORAL USE) PO PRN ×2 (12:17→13:24)
[2017-04-07] MEDS ORDERED: HYDROmorphone 2 MG TAB PO PRN (14:34)
--- NOTE | 2017-04-07 15:39 | CT ---
"EXAMINATION TYPE: CT abdomen pelvis w con DATE OF EXAM: 04/07/2017 COMPARISON: 07/28/2015 INDICATION: Patient poor historian. Left groin pain. DLP: 979 mGycm, Automated exposure control for dose reduction was used. CONTRAST: 100 mL of Omnipaque 300. Study performed with Oral Contrast TECHNIQUE: Axial images were obtained from above the diaphragm to the pubic rami in the axial plane a t 5 mm thick sections. Reconstructed images are reviewed on the computer in the coronal plane. FINDINGS: Limited CT sections are obtained the lung bases. The lung bases are clear. CT ABDOMEN: Liver: There is a 2.5 cm hypodense lesion within the superior right lobe liver suspicious for metasta tic lesion. Multiple additional smaller hypodensities are scattered within the liver suspicious for a dditional metastatic lesions. Spleen: There is an irregular hypodensity within the medial aspect of the spleen. Complex cyst could be considered. Other etiologies are not excluded. Pancreas: Normal Adrenal glands: Left adrenal gland appears normal. There is poor visualization of the right adrenal g land. Gallbladder: Surgically absent. Kidneys: Right kidney is surgically absent. Left kidney appears normal without masses cysts or hydron ephrosis. Small cortical renal cyst at the superior pole measuring 0.6 cm may be present. Aorta: Vascular calcification is within the aorta. Inferior vena cava: Normal. CT PELVIS: Loops of bowel within the abdomen and pelvis are normal. There are loops of bowel which are incom pletely distended or lack oral contrast limiting their evaluation. Fecal debris is within the distal colon. Appendix: Not identified Urinary bladder: Normal as visualized. Genitourinary structures: Uterus and ovaries are not identified. Osseous structures: No suspicious lytic or sclerotic lesions. Beam hardening artifact from right hip prosthesis is evident. Degenerative disc changes facet changes and scoliosis are within the lumbar sp ine. There is loss of joint space of the left hip. Findings can be compatible with moderate degenerat macie changes. COMPARISON: Liver lesions are not evident on the previous examination. The right kidney has been rese cted over the interval. Delayed images were obtained through the abdomen. Liver lesions are less well visualized on the delay ed imaging. IMPRESSIONS: 1. Findings suspicious for multiple hepatic liver lesions such as metastasis. 2. 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 A [place] message has been communicated to Oscar Martins MD via the i-nexus 360 | Critical Result s [employer] on 04/07/2017 3:36 PM, Message ID [id number]."
[2017-04-07] MEDS: METOPROLOL TARTRATE 50 MG TAB PO SCH (20:31)
[2017-04-07] MEDS: DIAZEPAM 5 MG TAB PO SCH (20:36)
[2017-04-08] MEDS: SODIUM CHLORIDE 0.9% 1,000 ML IV SCH ×2 (04:05→22:15)
[2017-04-08 06:46] LABS: Basophils % (A) 0 %; Eosinophils # (A) 0.2 k/uL (0-0.7); Eosinophils % (A) 3 %; HCT 33.4 % (34.0-46.0); Lymphocytes # (A) 1.5 k/uL (1.0-4.8); Lymphocytes % (A) 25 %; MCHC 32.8 g/dL (31.0-37.0); MCV 97.8 fL (80.0-100.0); Mean Platelet Volume 6.2; Monocytes # (A) 0.5 k/uL (0-1.0); Monocytes % (A) 8 %; Neutrophils # (A) 3.8 k/uL (1.3-7.7); Neutrophils % (A) 62 %; Platelet Count 232 k/uL (150-450); RBC 3.42 m/uL (3.80-5.40); RDW 12.4 % (11.5-15.5); WBC 6.1 k/uL (3.8-10.6)
[2017-04-08 07:37] LABS: Albumin 3.1 g/dL (3.5-5.0); Chloride 97 mmol/L (98-107); Glucose 91 mg/dL (74-99); Potassium 4.2 mmol/L (3.5-5.1); Total Protein 5.5 g/dL (6.3-8.2)
[2017-04-08 07:38] LABS: ALT 21 U/L (9-52); AST 27 U/L (14-36); Alkaline Phosphatase 61 U/L (38-126); Anion Gap 9 mmol/L; Blood Urea Nitrogen 15 mg/dL (7-17); Calcium 9.1 mg/dL (8.4-10.2); Carbon Dioxide 27 mmol/L (22-30); Sodium 133 mmol/L (137-145); Total Bilirubin 0.5 mg/dL (0.2-1.3)
[2017-04-08] MEDS: BISACODYL 5 MG TABLET.DR PO SCH (08:09)
[2017-04-08] MEDS: APIXABAN 2.5 MG TABLET PO SCH ×2 (08:10→20:53)
[2017-04-08] MEDS: CALCIUM CARB-VIT D 500MG-200UN 1 EACH TAB PO SCH ×2 (08:10→20:54)
[2017-04-08] MEDS: FERROUS SULFATE 325 MG TAB PO SCH (08:10)
[2017-04-08] MEDS: amLODIPine 5 MG TAB PO SCH (08:10)
[2017-04-08] MEDS: GABAPENTIN 100 MG CAP PO SCH (08:11)
[2017-04-08] MEDS: IMATINIB MESYLATE 100 MG PO SCH ×2 (08:11→20:55)
[2017-04-08] MEDS: PSYLLIUM HUSK 100% 6 GM PACKET PO SCH (08:14)
--- NOTE | 2017-04-08 08:45 | P.PN ---
Subjective Progress Note Date: 04/08/17 Principal diagnosis: Left hip and groin pain The patient is a 87 year old female who was directly admitted from our office on Saturday. She presented to our office with left hip pain after sustaining a fall at home. X-rays were negative for fracture but she was unable to bear weight. An MRI and bone scan had been obtained to rule out fracture. Those tests were negative for fracture. Today, she states that she is still having pain and spasms in her left thigh. The pain medications seem to help the pain. She denies fever, chills, rigors, abdominal pain, shortness of breath, chest pain today. Objective - Vital Signs Vital signs: Vital Signs Temp 98.5 F 04/08/17 08:06 Pulse 65 04/08/17 08:06 Resp 16 04/08/17 08:06 BP 140/70 04/08/17 08:06 Pulse Ox 98 04/08/17 08:06 Intake & Output 04/07/17 04/08/17 04/08/17 18:59 06:59 18:59 Intake Total 640 Balance 640 Intake: Intake, IV Titration 400 Amount Sodium Chloride 0.9% 1, 400 000 ml @ 50 mls/hr IV . Q20H [facility] Rx#:[id number] Oral 240 Other: Voiding Method Toilet Toilet # Voids 3 2 # Bowel Movements 1 - Exam The patient is an 87-year-old female who is in no acute distress. She is alert and oriented 3. Exam of the left lower extremity reveals no pain to the lateral hip. There is pain upon any range of motion of the leg. There is pain to palpation to the inner thigh and groin. Calf is soft and nontender. She has good foot and ankle motion. Neurological and circulatory status is intact. - Labs CBC & Chem 7: 04/08/17 06:30 04/08/17 06:30 Labs: Abnormal Lab Results - Last 24 Hours (Table) 04/07/17 04/08/17 04/08/17 Range/Units 07:27 06:30 06:30 RBC 3.78 L 3.42 L (3.80-5.40) m/uL Hgb 11.0 L (11.4-16.0) gm/dL Hct 33.4 L (34.0-46.0) % MCHC 30.9 L (31.0-37.0) g/dL Sodium 133 L (137-145) mmol/L Chloride 97 L (98-107) mmol/L Total Protein 5.5 L (6.3-8.2) g/dL Albumin 3.1 L (3.5-5.0) g/dL Assessment and Plan (1) Fall Current Visit: No Status: Acute Code(s): W19.XXXA - UNSPECIFIED FALL, INITIAL ENCOUNTER SNOMED Code(s): 0732259 (2) Left hip pain Current Visit: Yes Status: Acute Code(s): M25.552 - PAIN IN LEFT HIP SNOMED Code(s): 22384999 (3) Muscle strain of left lower extremity Current Visit: Yes Status: Acute Code(s): S86.912A - STRAIN OF UNSP MUSC/ TEND AT LOWER LEG LEVEL, LEFT LEG, INIT SNOMED Code(s): 654146698 Plan: The clinical, MRI, and bone scan findings were discussed with the patient. She will be evaluated by physical and occupational therapy for rehab placement. She will likely be discharged to skilled rehab today or tomorrow. Continue pain control. We will continue to follow patient closely and make further recommendations as needed.
--- NOTE | 2017-04-08 09:07 | P.DS ---
Providers Date of admission: 04/08/17 08:47 Expected date of discharge: 04/08/17 Attending physician: Christoph Hinojosa Consults: 04/05/17 12:48 Consult Physician Routine Consulting Provider: Oscar Martins Consult Reason/Comments: medical management Do you want consulting provider notified?: Yes Primary care physician: Stated None - Discharge Diagnosis(es) (1) Fall Current Visit: No Status: Acute (2) Left hip pain Current Visit: Yes Status: Acute (3) Muscle strain of left lower extremity Current Visit: Yes Status: Acute Hospital Course: The patient is an 87-year-old female who presented to our office with left hip pain after sustaining a fall at home. She was admitted directly from our office for further evaluation for the left hip pain. She is unable to bear weight fully on the left leg. An MRI and bone scan were obtained and were negative for fracture or bony lesions. The patient has been evaluated by physical and occupational therapy and transferred to skilled rehab as recommended at this time. On the day of discharge, the patient's vital signs are stable. She is alert and oriented 3. Exam of the left lower extremity reveals no pain to the lateral hip. There is pain upon range of motion of the leg. There is pain to palpation to the inner thigh and groin. Calf is soft and nontender. Good foot and ankle motion. Neurological and circulatory status is intact. The patient is orthopedically stable for discharge to skilled rehab today. Pertinent Studies: Laboratory Tests 04/08/17 04/08/17 06:30 06:30 WBC 6.1 RBC 3.42 L Hgb 11.0 L Hct 33.4 L Sodium 133 L Chloride 97 L Total Protein 5.5 L Albumin 3.1 L Patient Condition at Discharge: Stable Plan - Discharge Summary Discharge Rx Participant: No New Discharge Prescriptions: New Sennosides-Docusate Sodium [Senokot-S] 2 tab PO DAILY #30 tablet traMADol HCl [Ultram] 50 - 100 mg PO Q4-6H PRN #90 tab PRN Reason: Pain Diazepam [Valium] 5 mg PO TID PRN #60 tab PRN Reason: Muscle Spasm No Action amLODIPine BESYLATE [Norvasc] 5 mg PO DAILY Multivitamin/Iron/Folic Acid [Centrum Complete Multivit Tab] 1 tab PO DAILY Imatinib Mesylate [Gleevec] 200 mg PO BID Calcium Carb-Vit D 500Mg-200Un [Oscal 500+D] 1 tab PO BID Bisacodyl [Dulcolax] 5 mg PO BID Gabapentin [Neurontin] 100 mg PO DAILY Ferrous Sulfate [Feosol] 325 mg PO DAILY Apixaban [Eliquis] 2.5 mg PO BID Acetaminophen Tab [Tylenol Tab] 500 mg PO BID Metoprolol Tartrate [Lopressor] 50 mg PO HS HYDROcodone/APAP 5-325MG [[place] 5-325] 1 tab PO Q6HR PRN PRN Reason: Pain Psyllium Husk 100% [Metamucil Packet] 6 gm PO DAILY Diazepam [Valium] 2.5 mg PO HS Discharge Medication List Multivitamin/Iron/Folic Acid [Centrum Complete Multivit Tab] 1 tab PO DAILY [History] amLODIPine BESYLATE [Norvasc] 5 mg PO DAILY 08/10/13 [History] Imatinib Mesylate [Gleevec] 200 mg PO BID 04/24/14 [History] Calcium Carb-Vit D 500Mg-200Un [Oscal 500+D] 1 tab PO BID 08/22/15 [History] Acetaminophen Tab [Tylenol Tab] 500 mg PO BID 03/29/17 [History] Apixaban [Eliquis] 2.5 mg PO BID 03/29/17 [History] Bisacodyl [Dulcolax] 5 mg PO BID 03/29/17 [History] Ferrous Sulfate [Feosol] 325 mg PO DAILY 03/29/17 [History] Gabapentin [Neurontin] 100 mg PO DAILY 03/29/17 [History] Diazepam [Valium] 2.5 mg PO HS 04/05/17 [History] HYDROcodone/APAP 5-325MG [[place] 5-325] 1 tab PO Q6HR PRN 04/05/17 [History] Metoprolol Tartrate [Lopressor] 50 mg PO HS 04/05/17 [History] Psyllium Husk 100% [Metamucil Packet] 6 gm PO DAILY 04/05/17 [History] Diazepam [Valium] 5 mg PO TID PRN #60 tab 04/08/17 [Rx] Sennosides-Docusate Sodium [Senokot-S] 2 tab PO DAILY #30 tablet 02/12/18 [Rx] traMADol HCl [Ultram] 50 - 100 mg PO Q4-6H PRN #90 tab 04/08/17 [Rx] Follow up Appointment(s)/Referral(s): Christoph Hinojosa DO [Doctor of Osteopathic Medicine] - 3 Weeks (3-4 weeks) Michelle Redmond [NON-STAFF] - 1 Week Activity/Diet/Wound Care/Special Instructions: Weightbearing as tolerated with walker Follow up with Dr. Hinojosa in 3-4 weeks. Call [facility] with any questions or concerns, Discharge Disposition: TRANSFER TO SNF/ECF
[2017-04-08] MEDS: HYDROcodone/APAP 5-325MG 1 EACH TAB PO PRN ×2 (13:30→21:12)
[2017-04-08] MEDS: MULTIVITAMINS, THERA 1 EACH TAB PO SCH (13:31)
--- NOTE | 2017-04-08 14:20 | P.PN ---
Subjective Progress Note Date: 04/08/17 This is a 87-year-old female with a known history of atrial fibrillation, CML, TIA, hypertension and migraines. Patient is a direct admit from orthopedic office. We've been consulted for medical management. Apparently a few weeks ago patient had a fall. She was helped up by her cleaning service. She was doing well and then about a week later she started having severe pain in that left leg. Pain continued to progress. She went to the emergency room last Saturday. X-ray of the left hip and pelvis completed no evidence of fracture. And she was sent home. Patient was seen by the visiting home nurse and recommended that he cc be seen by the orthopedic doctor. She was evaluated by Dr. Hinojosa today and he recommended that she admitted to the hospital for further workup. MRI of the hip pelvis and a bone scan have been ordered. Patient's pain does radiate down the left leg. She also has some numbness. She's been having difficulty with walking. She denies any chest pain or shortness of breath, nausea or vomiting, bowel movement changes or urinary symptoms. Denies any fever chills or sweats. Denies any cough or congestion. 04/06/2017 patient is alert and oriented 3 she is still complaining of pain in the left lower extremity MRI and bones scan results discussed with patient and her daughter At this time will proceed was left lower extremity Doppler to rule out DVT continue with current medications On 04/07/2017 patient is alert and oriented 3 in no apparent distress she is still complaining of severe pain in the left groin area, radiating to her left lower extremity all tests so far are negative including MRI of the left hip and left lower extremity Doppler, today patient is stating that she is having pain in the left groin when she coughs, possibility of hernia was discussed with the patient will proceed with computed tomography scan of the abdomen and pelvis with contrast for further evaluation 04/08/2017 patient sitting in bedside chair. She is still having some left hip and leg pain. Pain is tolerable with pain medication. Orthopedics have cleared her for discharge to [facility]. Patient had SCDs scan of the abdomen and pelvis completed to rule out a hernia that may have contributed to patient's symptoms. There is no evidence of hernia on CAT scan. But the CAT scan did show findings suspicious for multiple hepatic liver lesions such as metastasis. Degenerative changes are noted on left hip compatible with moderate osteoarthritic degenerative change Objective - Vital Signs Vital signs: Vital Signs Temp 98.5 F 04/08/17 08:06 Pulse 65 04/08/17 08:06 Resp 16 04/08/17 08:06 BP 140/70 04/08/17 08:06 Pulse Ox 98 04/08/17 08:06 Intake & Output 04/07/17 04/08/17 04/08/17 18:59 06:59 18:59 Intake Total 640 Balance 640 Intake: Intake, IV Titration 400 Amount Sodium Chloride 0.9% 1, 400 000 ml @ 50 mls/hr IV . Q20H [facility] Rx#:[id number] Oral 240 Other: Voiding Method Toilet Toilet # Voids 3 2 # Bowel Movements 1 - Exam Head normocephalic Neck supple Lungs clear to auscultation bilaterally no wheezing or crackles Heart regular rate and rhythm S1-S2, no rub or gallop Abdomen is soft nontender nondistended positive bowel sounds no hepatosplenomegaly Extremities no edema Neuro alert and orientated to 3 - Labs CBC & Chem 7: 04/08/17 06:30 04/08/17 06:30 Labs: Abnormal Lab Results - Last 24 Hours (Table) 04/08/17 04/08/17 Range/Units 06:30 06:30 RBC 3.42 L (3.80-5.40) m/uL Hgb 11.0 L (11.4-16.0) gm/dL Hct 33.4 L (34.0-46.0) % Sodium 133 L (137-145) mmol/L Chloride 97 L (98-107) mmol/L Total Protein 5.5 L (6.3-8.2) g/dL Albumin 3.1 L (3.5-5.0) g/dL Assessment and Plan Assessment: 1. Left hip and leg pain: Possibly related to a muscle strain of the left lower extremity. Otherwise workup was negative. Venous Doppler negative for DVT. Bone scan showed no abnormality of the left hip. Left hip MRI no evidence of fracture. There may be some muscle strain or injury within the quadriceps and hamstrings posterior to the lesser trochanter as well as lateral soft tissue swelling. Continue with current pain medications. Computed tomography scan and pelvis showed no evidence of hernia to contribute to her symptoms 2. Mild dehydration on admission . Improved with IV fluids 3. History of atrial fibrillation: On Eliquis at home 4. History of chronic myeloid leukemia resume Gleevac 5. History of TIAs 6. History of essential hypertension: Initial blood pressure elevated on admission likely related to pain. Blood pressures have shown improvement 7. Diarrhea: Patient had 3 loose stools. Discontinue stool softener and MiraLAX. And monitor 8. Multiple hepatic liver lesions noted on computed tomography scan of abdomen and pelvis. Consult oncology for further recommendations At this time we'll hold patient's discharge to have her evaluated by oncology in regards to the liver lesions I performed an examination of the patient and discussed their management with the physician Range Rider. I have reviewed the Physician Range Rider's notes and agree with the documented findings and plan of care
[2017-04-08] MEDS: METOPROLOL TARTRATE 50 MG TAB PO SCH (20:55)
[2017-04-08] MEDS: DIAZEPAM 5 MG TAB PO SCH (20:57)
[2017-04-09 07:46] LABS: Basophils % (A) 1 %; Eosinophils # (A) 0.2 k/uL (0-0.7); Eosinophils % (A) 4 %; HCT 34.4 % (34.0-46.0); HGB 10.8 gm/dL (11.4-16.0); Lymphocytes # (A) 1.4 k/uL (1.0-4.8); Lymphocytes % (A) 26 %; MCH 31.3 pg (25.0-35.0); MCHC 31.5 g/dL (31.0-37.0); MCV 99.5 fL (80.0-100.0); Mean Platelet Volume 6.4; Monocytes # (A) 0.5 k/uL (0-1.0); Monocytes % (A) 9 %; Neutrophils % (A) 56 %; Platelet Count 233 k/uL (150-450); RBC 3.46 m/uL (3.80-5.40); RDW 12.5 % (11.5-15.5); WBC 5.3 k/uL (3.8-10.6)
[2017-04-09 08:05] LABS: Albumin 3.2 g/dL (3.5-5.0); Calcium 9.3 mg/dL (8.4-10.2); Potassium 4.5 mmol/L (3.5-5.1); Total Bilirubin 0.4 mg/dL (0.2-1.3); Total Protein 5.7 g/dL (6.3-8.2)
[2017-04-09] MEDS: FERROUS SULFATE 325 MG TAB PO SCH (09:03)
[2017-04-09] MEDS: MULTIVITAMINS, THERA 1 EACH TAB PO SCH (09:03)
[2017-04-09] MEDS: amLODIPine 5 MG TAB PO SCH (09:04)
[2017-04-09] MEDS: CALCIUM CARB-VIT D 500MG-200UN 1 EACH TAB PO SCH ×2 (09:04→21:53)
[2017-04-09] MEDS: IMATINIB MESYLATE 100 MG PO SCH ×3 (09:04→21:58)
[2017-04-09] MEDS: GABAPENTIN 100 MG CAP PO SCH (09:04)
[2017-04-09] MEDS: SODIUM CHLORIDE 0.9% 1,000 ML IV SCH (09:06)
[2017-04-09] MEDS ORDERED: RX INFO: IV CONTRAST WAS GIVEN 1 EACH MISC MISCELLANE PRN (09:22)
[2017-04-09] MEDS: APIXABAN 2.5 MG TABLET PO SCH ×2 (09:51→21:53)
[2017-04-09] MEDS: HYDROcodone/APAP 5-325MG 1 EACH TAB PO PRN ×2 (10:19→19:51)
[2017-04-09] MEDS ORDERED: SODIUM CHLORIDE 0.9% 1,000 ML IV SCH (12:00)
--- NOTE | 2017-04-09 12:00 | P.PN ---
Subjective Progress Note Date: 04/09/17 This is a 87-year-old female with a known history of atrial fibrillation, CML, TIA, hypertension and migraines. Patient is a direct admit from orthopedic office. We've been consulted for medical management. Apparently a few weeks ago patient had a fall. She was helped up by her cleaning service. She was doing well and then about a week later she started having severe pain in that left leg. Pain continued to progress. She went to the emergency room last Saturday. X-ray of the left hip and pelvis completed no evidence of fracture. And she was sent home. Patient was seen by the visiting home nurse and recommended that he cc be seen by the orthopedic doctor. She was evaluated by Dr. Hinojosa today and he recommended that she admitted to the hospital for further workup. MRI of the hip pelvis and a bone scan have been ordered. Patient's pain does radiate down the left leg. She also has some numbness. She's been having difficulty with walking. She denies any chest pain or shortness of breath, nausea or vomiting, bowel movement changes or urinary symptoms. Denies any fever chills or sweats. Denies any cough or congestion. 04/06/2017 patient is alert and oriented 3 she is still complaining of pain in the left lower extremity MRI and bones scan results discussed with patient and her daughter At this time will proceed was left lower extremity Doppler to rule out DVT continue with current medications On 04/07/2017 patient is alert and oriented 3 in no apparent distress she is still complaining of severe pain in the left groin area, radiating to her left lower extremity all tests so far are negative including MRI of the left hip and left lower extremity Doppler, today patient is stating that she is having pain in the left groin when she coughs, possibility of hernia was discussed with the patient will proceed with computed tomography scan of the abdomen and pelvis with contrast for further evaluation 04/08/2017 patient sitting in bedside chair. She is still having some left hip and leg pain. Pain is tolerable with pain medication. Orthopedics have cleared her for discharge to [facility]. Patient had SCDs scan of the abdomen and pelvis completed to rule out a hernia that may have contributed to patient's symptoms. There is no evidence of hernia on CAT scan. But the CAT scan did show findings suspicious for multiple hepatic liver lesions such as metastasis. Degenerative changes are noted on left hip compatible with moderate osteoarthritic degenerative change 04/09/2017 patient reports that her pain is controlled. She has been seen by oncology in regards to the hepatic lesions. They have ordered a computed tomography scan of the chest with contrast for further evaluation of metastatic disease. Unfortunately patient just had the computed tomography scan the abdomen and pelvis on the with contrast and her creatinine is going up is at 1.12. And she only has one known kidney. At this time we'll reschedule the computed tomography scan of the chest with contrast for tomorrow. Place patient on normal saline at 50 mL an hour Objective - Vital Signs Vital signs: Vital Signs Temp 98.3 F 04/09/17 09:02 Pulse 67 04/09/17 09:02 Resp 16 04/09/17 09:02 BP 169/90 04/09/17 09:02 Pulse Ox 100 04/09/17 09:02 Intake & Output 04/08/17 04/09/17 04/09/17 18:59 06:59 18:59 Intake Total 980 480 Balance 980 480 Intake: Intake, IV Titration 680 Amount Sodium Chloride 0.9% 1, 680 000 ml @ 50 mls/hr IV . Q20H [facility] Rx#:[id number] Oral 480 Blood Product 300 Other: Voiding Method Toilet # Voids 2 - Exam Head normocephalic Neck supple Lungs clear to auscultation bilaterally no wheezing or crackles Heart regular rate and rhythm S1-S2, no rub or gallop Abdomen is soft nontender nondistended positive bowel sounds no hepatosplenomegaly Extremities no edema Neuro alert and orientated to 3 - Labs CBC & Chem 7: 04/09/17 07:10 04/09/17 07:10 Labs: Abnormal Lab Results - Last 24 Hours (Table) 04/09/17 04/09/17 Range/Units 07:10 07:10 RBC 3.46 L (3.80-5.40) m/uL Hgb 10.8 L (11.4-16.0) gm/dL Sodium 135 L (137-145) mmol/L Chloride 96 L (98-107) mmol/L BUN 20 H (7-17) mg/dL Creatinine 1.12 H (0.52-1.04) mg/dL Total Protein 5.7 L (6.3-8.2) g/dL Albumin 3.2 L (3.5-5.0) g/dL Assessment and Plan Assessment: 1. Left hip and leg pain: Possibly related to a muscle strain of the left lower extremity. Otherwise workup was negative. Venous Doppler negative for DVT. Bone scan showed no abnormality of the left hip. Left hip MRI no evidence of fracture. There may be some muscle strain or injury within the quadriceps and hamstrings posterior to the lesser trochanter as well as lateral soft tissue swelling. Continue with current pain medications. Computed tomography scan and pelvis showed no evidence of hernia to contribute to her symptoms 2. Mild dehydration on admission . Improved with IV fluids 3. History of chronic atrial fibrillation: On Eliquis at home 4. History of chronic myeloid leukemia resume Gleevac 5. History of TIAs 6. History of essential hypertension: Initial blood pressure elevated on admission likely related to pain. Blood pressures have shown improvement 7. Diarrhea: Resolved with discontinuing stool softener and MiraLAX. 8. Multiple hepatic liver lesions noted on computed tomography scan of abdomen and pelvis. Evaluated by oncology. They've ordered a computed tomography scan of the chest for further evaluation of possible metastatic disease. Unfortunately creatinine has come up to 1.12. At this time we'll have a computed tomography scan of chest with contrast rescheduled for tomorrow. Will give IV fluids to hydrate improve kidney function. Repeat BMP in a.m. Patient is not ready for discharge yet. We'll hydrate patient with IV fluids. And schedule computed tomography scan of the chest for tomorrow. Anticipate discharge possibly tomorrow I performed an examination of the patient and discussed their management with the physician Emissions Testing Technician. I have reviewed the Physician Emissions Testing Technician's notes and agree with the documented findings and plan of care
--- NOTE | 2017-04-09 21:17 | P.CONS ---
History of Present Illness - Reason for Consult Consult date: 04/09/17 - History of Present Illness the patient is an 87-year WF, well known to Our service. She follows with Dr. Hale in the outpatient setting. She was diagnosed with chronic myeloid leukemia in 09/04. She was placed on Gleevec, but could not tolerate the standard 400 mg per day dose. She was switched to 100 mg by mouth twice a day and achieved periaortic remission. Dose was increased back to the standard dose in 11/06 because of cytogenetic relapse. She tolerated that well until 03/13 , when dose had to be reduced back to 100 twice a day due to Anemia. The patient has remained in complete her genetic remission and major molecular remission. In 08/10 she was found to have increasing soft tissue related to the right kidney. She had a nephrectomy in 09/09 revealing high-grade urothelial carcinoma T3 NX. She was admitted to the hospital this time, as she had fallen accidentally and hurt her left hip area. She is complaining of severe pain in the left hip and left lower extremity. She had extensive imaging done, including x-rays, MRI as well as CT of the abdomen and pelvis. This revealed no evidence of any fracture or bone destruction. Bone scan was also negative. There was evidence of soft tissue injury which is felt to be the cause. Incidentally, on CT of the abdomen and pelvis, hypodense lesions were noted in the liver that were concerning for metastasis, the most prominent 2.4 cm in the rt hepatic lobe. Consult was therefore placed for further evaluation and recommendations Review of Systems Constitutional: Denies chills, Denies fever Eyes: denies blurred vision, denies pain Ears: bilateral: decreased hearing, deny: ear discharge, earache, tinnitus Ears, nose, mouth and throat: Denies headache, Denies sore throat Cardiovascular: Denies chest pain, Denies shortness of breath Respiratory: Denies cough Gastrointestinal: Denies abdominal pain, Denies diarrhea, Denies nausea, Denies vomiting Genitourinary: Reports as per HPI Menstruation: Reports postmenopausal Musculoskeletal: Reports shooting leg pain Musculoskeletal: left: hip pain Integumentary: Denies pruritus, Denies rash Neurological: Denies numbness, Denies weakness Psychiatric: Denies anxiety, Denies depression Endocrine: Denies fatigue, Denies weight change Hematologic/Lymphatic: Reports as per HPI Past Medical History Past Medical History: Atrial Fibrillation, Cancer, CVA/TIA, GERD/Reflux, Hearing Disorder / Deafness, Hyperlipidemia, Hypertension, Osteoarthritis (OA), Pneumonia Additional Past Medical History / Comment(s): CML, melanoma with removal from back, R renal cancer with numerous procedures and then R nephrectomy/uretectomy , R paratid warthins tumor with removal, TIAs x 2, migraines, urine leakage, constipation. History of Any Multi-Drug Resistant Organisms: None Reported Past Surgical History: Back Surgery, Cholecystectomy, Hysterectomy, Joint Replacement, Orthopedic Surgery, Tonsillectomy Additional Past Surgical History / Comment(s): Numerous procedures for R kidney cancer then eventual R nephrectomy/ureterectomy in 2016 at [facility], bilateral knee arthroscopies then arthroplasties, R hip total hip arthroplasty, back surgery to remove "chips", colonoscopy, melanoma removed from back, D&C, FNA L paratid then removal, bilateral cataract removal, L achillies tendon surgery. Past Anesthesia/Blood Transfusion Reactions: Motion Sickness Additional Past Anesthesia/Blood Transfusion Reaction / Comm: Pt states she is slow to wake after general anesthesia. Smoking Status: Never smoker - Past Family History Daughter(s) Family Medical History: Cancer Additional Family Medical History / Comment(s): Daughter from colon cancer Mother Family Medical History: Congestive Heart Failure (CHF), Musculoskeletal Disorder , Neurologic Disorder Additional Family Medical History / Comment(s): parkinsons Medications and Allergies Home Medications Medication Instructions Recorded Confirmed Type Multivitamin/Iron/Folic Acid 1 tab PO DAILY 08/10/13 04/05/17 History [Centrum Complete Multivit Tab] amLODIPine BESYLATE [Norvasc] 5 mg PO DAILY 08/10/13 04/05/17 History Imatinib Mesylate [Gleevec] 200 mg PO BID 04/24/14 04/05/17 History Calcium Carb-Vit D 500Mg-200Un 1 tab PO BID 08/22/15 04/05/17 History [Oscal 500+D] Acetaminophen Tab [Tylenol Tab] 500 mg PO BID 03/29/17 04/05/17 History Apixaban [Eliquis] 2.5 mg PO BID 03/29/17 04/05/17 History Bisacodyl [Dulcolax] 5 mg PO BID 03/29/17 04/05/17 History Ferrous Sulfate [Feosol] 325 mg PO DAILY 03/29/17 04/05/17 History Gabapentin [Neurontin] 100 mg PO DAILY 03/29/17 04/05/17 History Diazepam [Valium] 2.5 mg PO HS 04/05/17 04/05/17 History HYDROcodone/APAP 5-325MG [[place] 1 tab PO Q6HR PRN 04/05/17 04/05/17 History 5-325] Metoprolol Tartrate [Lopressor] 50 mg PO HS 04/05/17 04/05/17 History Psyllium Husk 100% [Metamucil 6 gm PO DAILY 04/05/17 04/05/17 History Packet] Diazepam [Valium] 5 mg PO TID PRN #60 tab 04/08/17 Rx Sennosides-Docusate Sodium 2 tab PO DAILY #30 tablet 04/08/17 Rx [Senokot-S] traMADol HCl [Ultram] 50 - 100 mg PO Q4-6H PRN #90 tab 04/08/17 Rx Allergies Allergy/AdvReac Type Severity Reaction Status Date / Time Sulfa (Sulfonamide Allergy Severe Rapid Verified 04/05/17 14:34 Antibiotics) Heart Rate, high temperature Physical Exam Vitals: Vital Signs Temp Pulse Pulse Resp BP Pulse Ox 04/09/17 09:02 98.3 F 67 16 169/90 100 04/09/17 02:13 97.6 F 63 18 115/66 99 04/09/17 00:00 72 18 04/08/17 20:00 97.7 F 72 18 172/79 100 04/08/17 15:00 98.4 F 89 16 123/61 99 Intake and Output 04/08/17 04/09/17 04/09/17 22:59 06:59 14:59 Intake Total 480 Balance 480 Intake: Oral 480 Other: Voiding Method Toilet Toilet # Voids 1 2 1 - Constitutional General appearance: no acute distress - EENT Eyes: EOMI, PERRLA ENT: hearing grossly normal, normal oropharynx - Neck Neck: no lymphadenopathy Thyroid: bilateral: normal size - Respiratory Respiratory: bilateral: CTA - Cardiovascular Rhythm: regular Heart sounds: normal: S1, S2 - Gastrointestinal General gastrointestinal: normal bowel sounds, soft - Integumentary Integumentary: normal - Neurologic Neurologic: CNII-XII intact - Musculoskeletal Musculoskeletal: left sided weakness (decreased ROM left hip) - Psychiatric Psychiatric: A&O x's 3, appropriate affect Results CBC & Chem 7: 04/09/17 07:10 04/09/17 07:10 Labs: Abnormal Lab Results - Last 24 Hours (Table) 04/09/17 04/09/17 Range/Units 07:10 07:10 RBC 3.46 L (3.80-5.40) m/uL Hgb 10.8 L (11.4-16.0) gm/dL Sodium 135 L (137-145) mmol/L Chloride 96 L (98-107) mmol/L BUN 20 H (7-17) mg/dL Creatinine 1.12 H (0.52-1.04) mg/dL Total Protein 5.7 L (6.3-8.2) g/dL Albumin 3.2 L (3.5-5.0) g/dL Comments: reports of MRI L hip, bone scan, skeletal x rays reviewed CT scan - abdomen: report reviewed CT scan - pelvis: report reviewed Assessment and Plan (1) Liver masses Narrative/Plan: The Ct scan appearance is suspicious for metastatic disease. The clinical picture and implications were discussed in detail with the pt and her daughter. The next step would be a biopsy to establish diagnosis. The pt is agreeable to the same. This can be set up as an outpt. She will need to hold the Eliquis for about 3 doses prior to the procedure. An obvious primary site is not evident. She does a h/o a high grade urothelial cancer, which is a major consideration. The pt is currently asymptomatic. Check CT chest for additional staging w/u. Current Visit: Yes Status: Acute Code(s): R16.0 - HEPATOMEGALY, NOT ELSEWHERE CLASSIFIED SNOMED Code(s): 633540622 (2) Left hip pain Narrative/Plan: No major structural abnormality was noted on extensive imaging. Thus this appears to be due to soft tissue trauma Current Visit: Yes Status: Acute Code(s): M25.552 - PAIN IN LEFT HIP SNOMED Code(s): 82775911 Plan: Defer to the admitting service for managment of her other medical problems.
[2017-04-09] MEDS: METOPROLOL TARTRATE 50 MG TAB PO SCH (21:53)
[2017-04-09] MEDS: DIAZEPAM 5 MG TAB PO SCH (21:53)
[2017-04-10] MEDS: HYDROcodone/APAP 5-325MG 1 EACH TAB PO PRN ×3 (02:17→17:00)
[2017-04-10 07:42] LABS: Basophils % (A) 1 %; Eosinophils # (A) 0.2 k/uL (0-0.7); Eosinophils % (A) 4 %; HCT 35.6 % (34.0-46.0); HGB 11.2 gm/dL (11.4-16.0); Lymphocytes # (A) 2.1 k/uL (1.0-4.8); Lymphocytes % (A) 33 %; MCH 31.6 pg (25.0-35.0); MCHC 31.4 g/dL (31.0-37.0); MCV 100.7 fL (80.0-100.0); Mean Platelet Volume 6.5; Monocytes # (A) 0.4 k/uL (0-1.0); Monocytes % (A) 7 %; Neutrophils # (A) 3.3 k/uL (1.3-7.7); Neutrophils % (A) 52 %; Platelet Count 279 k/uL (150-450); RBC 3.54 m/uL (3.80-5.40); RDW 12.5 % (11.5-15.5); WBC 6.4 k/uL (3.8-10.6)
[2017-04-10 07:57] LABS: Anion Gap 11 mmol/L; Blood Urea Nitrogen 18 mg/dL (7-17); Calcium 9.1 mg/dL (8.4-10.2); Carbon Dioxide 27 mmol/L (22-30); Chloride 99 mmol/L (98-107); Glucose 94 mg/dL (74-99); Potassium 4.3 mmol/L (3.5-5.1); Sodium 137 mmol/L (137-145)
--- NOTE | 2017-04-10 08:21 | P.PN ---
Subjective Progress Note Date: 04/10/17 Principal diagnosis: Left hip and groin pain The patient is a 87 year old female who was directly admitted from our office. She presented to our office with left hip pain after sustaining a fall at home. X-rays were negative for fracture but she was unable to bear weight. An MRI and bone scan had been obtained to rule out fracture. Those tests were negative for fracture. Today, she states that she is still having pain and spasms in her left thigh. The pain medications seem to help the pain. She denies fever, chills, rigors, abdominal pain, shortness of breath, chest pain today. CT of the abdomen revealed liver lesions. She was seen by Dr. Oleary yesterday and a chest CT was ordered. The chest CT will be obtained today. Objective - Vital Signs Vital signs: Vital Signs Temp 97.9 F 04/10/17 02:15 Pulse 63 04/10/17 02:15 Resp 17 04/10/17 02:15 BP 146/66 04/10/17 02:15 Pulse Ox 99 04/10/17 02:15 Intake & Output 04/09/17 04/10/17 04/10/17 18:59 06:59 18:59 Intake Total 1100 Balance 1100 Intake: Intake, IV Titration 500 Amount Sodium Chloride 0.9% 1, 500 000 ml @ 50 mls/hr IV . Q20H [facility] Rx#:[id number] Oral 600 Other: Voiding Method Toilet # Voids 1 1 - Exam The patient is an 87-year-old female who is in no acute distress. She is alert and oriented 3. Exam of the left lower extremity reveals no pain to the lateral hip. There is pain upon any range of motion of the leg. There is pain to palpation to the inner thigh and groin. Calf is soft and nontender. She has good foot and ankle motion. Neurological and circulatory status is intact. - Labs CBC & Chem 7: 04/10/17 06:47 04/10/17 06:47 Labs: Abnormal Lab Results - Last 24 Hours (Table) 04/09/17 04/10/17 04/10/17 Range/Units 07:10 06:47 06:47 RBC 3.54 L (3.80-5.40) m/uL Hgb 11.2 L (11.4-16.0) gm/dL MCV 100.7 H (80.0-100.0) fL Sodium 135 L (137-145) mmol/L Chloride 96 L (98-107) mmol/L BUN 20 H 18 H (7-17) mg/dL Creatinine 1.12 H (0.52-1.04) mg/dL Total Protein 5.7 L (6.3-8.2) g/dL Albumin 3.2 L (3.5-5.0) g/dL Assessment and Plan (1) Fall Current Visit: No Status: Acute Code(s): W19.XXXA - UNSPECIFIED FALL, INITIAL ENCOUNTER SNOMED Code(s): 5979510 (2) Left hip pain Current Visit: Yes Status: Acute Code(s): M25.552 - PAIN IN LEFT HIP SNOMED Code(s): 89426250 (3) Muscle strain of left lower extremity Current Visit: Yes Status: Acute Code(s): S86.912A - STRAIN OF UNSP MUSC/ TEND AT LOWER LEG LEVEL, LEFT LEG, INIT SNOMED Code(s): 348819446 Plan: The clinical, MRI, and bone scan findings were discussed with the patient. Continue PT and OT. She will likely be discharged to skilled rehab today or tomorrow. Continue pain control. We will continue to follow patient closely and make further recommendations as needed.
[2017-04-10] MEDS: amLODIPine 5 MG TAB PO SCH (09:26)
[2017-04-10] MEDS: FERROUS SULFATE 325 MG TAB PO SCH (09:26)
[2017-04-10] MEDS: IMATINIB MESYLATE 100 MG PO SCH (09:26)
[2017-04-10] MEDS: APIXABAN 2.5 MG TABLET PO SCH (09:27)
[2017-04-10] MEDS: CALCIUM CARB-VIT D 500MG-200UN 1 EACH TAB PO SCH (09:27)
[2017-04-10] MEDS: GABAPENTIN 100 MG CAP PO SCH (09:28)
[2017-04-10] MEDS: MULTIVITAMINS, THERA 1 EACH TAB PO SCH (09:28)
--- NOTE | 2017-04-10 09:39 | CT ---
EXAMINATION TYPE: CT chest w con DATE OF EXAM: 04/10/2017 COMPARISON: 04/07/2017 CT abdomen and pelvis HISTORY: 87-year-old female with liver masses TECHNIQUE: Contiguous axial scanning of the chest after the administration of 80 mL of Visipaque 320. Coronal/sagittal reconstructions performed. CT DLP: 275.3mGycm. Automatic exposure control utilized for a dose reduction. FINDINGS: Heart borderline to mildly enlarged without pericardial effusion. Left atrial enlargement is present. Coronary vessel calcifications are present and are a marker for coronary artery disease. The aorta is normal-caliber with mild atherosclerotic arch calcifications and conventional arch vesse l branching anatomy. Thoracic lymphadenopathy identified. Evaluation of the lungs shows no consolidation or pleural effusion. No suspicious pulmonary nodule or mass. Visualized upper abdomen again demonstrates multiple hepatic lesions, largest in the mid hepatic dome measuring up to 2.3 cm. Presently seen as well is upper abdominal retroperitoneal lymphadenopathy at the level of the SMA and renal arteries measuring up to 1.9 cm. Bones: S-shaped scoliosis. Degenerative changes at both shoulders. Degenerative changes throughout th e visualized spine. IMPRESSION: 1. Partially visualized multiple known liver lesions. In addition, upper abdominal retroperitoneal ly mphadenopathy is also partially visualized measuring up to 1.9 cm. Metastatic disease remains a prima ry differential. 2. No suspicious pulmonary nodule or mass or thoracic lymphadenopathy. 3. Mild cardiomegaly and CAD.
--- NOTE | 2017-04-10 12:12 | CDI ---
Last Revision, January 2017 Documentation Clarification Form Date: 04/10/2017 12:02:00 PM From: Haley Katz RN, CCDS Admit Date: 04/08/2017 8:47:00 AM Patient Name: Pedro Rendon Visit Number: [id number] ATTENTION: The Clinical Documentation Specialists (CDI) and [facility] Coding Staff appreciate your assistance in clarifying documentation. Please respond to the clarification below the line at the bottom and electronically sign. The CDI & [facility] Coding staff will review the response and follow-up if needed. Please note: Queries are made part of the Legal Health Record. If you have any questions, please contact the author of this message via ITS. Dr. Oscar Martins/Eva HORN A diagnosis of anemia lacks specificity to accurately reflect your patients severity of condition and clarification is needed. History/Risk Factors: Anemia, urothelial ca, suspecting liver mets, Clinical indicators: 04/09 Oncology Consult: Medication adjustments d/t anemia Hemoglobin: 12.5/11/11.6/11/10.8/11.2 Hematocrit: 40.1/34.5/37.5/33.4/34.4/35.6 Treatment: Feosol 325 mg PO Daily Labs Am Daily In order to capture the severity of condition, please clarify the type of anemia and etiology if known: Chronic blood loss anemia Iron deficiency anemia Hemolytic anemia Drug induced anemia Anemia due to malignancy Nutritional anemia Anemia of chronic disease Unable to determine Other, please specify Please continue to document in your progress notes and discharge summary in order to capture severity of illness and risk of mortality. Include clinical findings that support your diagnosis. MTDD
[2017-04-10 16:17] VITALS: BP 134/66; RESP 16; TEMP 97.3
--- NOTE | 2017-04-10 16:40 | P.DS ---
Providers Date of admission: 04/08/17 08:47 Expected date of discharge: 04/10/17 Attending physician: Christoph Hinojosa Consults: 04/05/17 12:48 Consult Physician Routine Consulting Provider: Oscar Martins Consult Reason/Comments: medical management Do you want consulting provider notified?: Yes 04/08/17 14:10 Consult Physician Routine Consulting Provider: Doron Oleary Consult Reason/Comments: hepatic liver lesions Do you want consulting provider notified?: Yes Primary care physician: Stated None Hospital Course: Diagnosis on discharge: 1. Left hip and leg pain: Possibly related to a muscle strain of the left lower extremity. Otherwise workup was negative. Venous Doppler negative for DVT. Bone scan showed no abnormality of the left hip. Left hip MRI no evidence of fracture. There may be some muscle strain or injury within the quadriceps and hamstrings posterior to the lesser trochanter as well as lateral soft tissue swelling. Continue with current pain medications. Computed tomography scan and pelvis showed no evidence of hernia to contribute to her symptoms 2. Mild dehydration on admission . Improved with IV fluids 3. History of chronic atrial fibrillation: On Eliquis at home 4. History of chronic myeloid leukemia resume Gleevac 5. History of TIAs 6. History of essential hypertension: Initial blood pressure elevated on admission likely related to pain. Blood pressures have shown improvement 7. Diarrhea: Resolved with discontinuing stool softener and MiraLAX. 8. Multiple hepatic liver lesions noted on computed tomography scan of abdomen and pelvis. Evaluated by oncology. They've ordered a computed tomography scan of the chest for further evaluation of possible metastatic disease. Unfortunately creatinine has come up to 1.12. At this time we'll have a computed tomography scan of chest with contrast rescheduled for tomorrow. Will give IV fluids to hydrate improve kidney function. Repeat BMP in a.m. Hospital course: This is a 87-year-old female with a known history of atrial fibrillation, CML, TIA, hypertension and migraines. Patient is a direct admit from orthopedic office. We've been consulted for medical management. Apparently a few weeks ago patient had a fall. She was helped up by her cleaning service. She was doing well and then about a week later she started having severe pain in that left leg. Pain continued to progress. She went to the emergency room last [facility]. X-ray of the left hip and pelvis completed no evidence of fracture. And she was sent home. Patient was seen by the visiting home nurse and recommended that he cc be seen by the orthopedic doctor. She was evaluated by Dr. Hinojosa today and he recommended that she admitted to the hospital for further workup. MRI of the hip pelvis and a bone scan have been ordered. Patient's pain does radiate down the left leg. She also has some numbness. She's been having difficulty with walking. She denies any chest pain or shortness of breath, nausea or vomiting, bowel movement changes or urinary symptoms. Denies any fever chills or sweats. Denies any cough or congestion. 04/06/2017 patient is alert and oriented 3 she is still complaining of pain in the left lower extremity MRI and bones scan results discussed with patient and her daughter At this time will proceed was left lower extremity Doppler to rule out DVT continue with current medications On 04/07/2017 patient is alert and oriented 3 in no apparent distress she is still complaining of severe pain in the left groin area, radiating to her left lower extremity all tests so far are negative including MRI of the left hip and left lower extremity Doppler, today patient is stating that she is having pain in the left groin when she coughs, possibility of hernia was discussed with the patient will proceed with computed tomography scan of the abdomen and pelvis with contrast for further evaluation 04/08/2017 patient sitting in bedside chair. She is still having some left hip and leg pain. Pain is tolerable with pain medication. Orthopedics have cleared her for discharge to [facility]. Patient had SCDs scan of the abdomen and pelvis completed to rule out a hernia that may have contributed to patient's symptoms. There is no evidence of hernia on CAT scan. But the CAT scan did show findings suspicious for multiple hepatic liver lesions such as metastasis. Degenerative changes are noted on left hip compatible with moderate osteoarthritic degenerative change 04/09/2017 patient reports that her pain is controlled. She has been seen by oncology in regards to the hepatic lesions. They have ordered a computed tomography scan of the chest with contrast for further evaluation of metastatic disease. Unfortunately patient just had the computed tomography scan the abdomen and pelvis on the with contrast and her creatinine is going up is at 1.12. And she only has one known kidney. At this time we'll reschedule the computed tomography scan of the chest with contrast for tomorrow. Place patient on normal saline at 50 mL an hour On 04/10 patient is alert and oriented 3 computed tomography scan of the chest done today and did not reveal any significant abnormality cause of abnormality on the abdomen computed tomography scan is unclear possible abdominal malignancy patient is well known to Dr. Chan and she will follow with him in the next 1-2 weeks for further evaluation patient will be transferred to [facility] for rehab Patient Condition at Discharge: Stable Plan - Discharge Summary Discharge Rx Participant: No New Discharge Prescriptions: New Sennosides-Docusate Sodium [Senokot-S] 2 tab PO DAILY #30 tablet traMADol HCl [Ultram] 50 - 100 mg PO Q4-6H PRN #90 tab PRN Reason: Pain Diazepam [Valium] 5 mg PO TID PRN #60 tab PRN Reason: Muscle Spasm HYDROmorphone [Dilaudid] 2 mg PO Q3HR PRN tab PRN Reason: Severe Breakthrough Pain traMADol HCl [Ultram] 50 mg PO Q4HR PRN tab PRN Reason: Pain Scale 1 To 5 Continue amLODIPine BESYLATE [Norvasc] 5 mg PO DAILY Multivitamin/Iron/Folic Acid [Centrum Complete Multivit Tab] 1 tab PO DAILY Imatinib Mesylate [Gleevec] 200 mg PO BID Calcium Carb-Vit D 500Mg-200Un [Oscal 500+D] 1 tab PO BID Bisacodyl [Dulcolax] 5 mg PO BID Gabapentin [Neurontin] 100 mg PO DAILY Ferrous Sulfate [Feosol] 325 mg PO DAILY Apixaban [Eliquis] 2.5 mg PO BID Acetaminophen Tab [Tylenol] 500 mg PO BID Metoprolol Tartrate [Lopressor] 50 mg PO HS HYDROcodone/APAP 5-325MG [[place] 5-325] 1 tab PO Q6HR PRN PRN Reason: Pain Psyllium Husk 100% [Metamucil Packet] 6 gm PO DAILY Diazepam [Valium] 2.5 mg PO HS Discharge Medication List Multivitamin/Iron/Folic Acid [Centrum Complete Multivit Tab] 1 tab PO DAILY [History] amLODIPine BESYLATE [Norvasc] 5 mg PO DAILY 08/10/13 [History] Imatinib Mesylate [Gleevec] 200 mg PO BID 04/24/14 [History] Calcium Carb-Vit D 500Mg-200Un [Oscal 500+D] 1 tab PO BID 08/22/15 [History] Acetaminophen Tab [Tylenol] 500 mg PO BID 03/29/17 [History] Apixaban [Eliquis] 2.5 mg PO BID 03/29/17 [History] Bisacodyl [Dulcolax] 5 mg PO BID 03/29/17 [History] Ferrous Sulfate [Feosol] 325 mg PO DAILY 03/29/17 [History] Gabapentin [Neurontin] 100 mg PO DAILY 03/29/17 [History] Diazepam [Valium] 2.5 mg PO HS 04/05/17 [History] HYDROcodone/APAP 5-325MG [[place] 5-325] 1 tab PO Q6HR PRN 04/05/17 [History] Metoprolol Tartrate [Lopressor] 50 mg PO HS 04/05/17 [History] Psyllium Husk 100% [Metamucil Packet] 6 gm PO DAILY 04/05/17 [History] Diazepam [Valium] 5 mg PO TID PRN #60 tab 04/08/17 [Rx] Sennosides-Docusate Sodium [Senokot-S] 2 tab PO DAILY #30 tablet 04/08/17 [Rx] traMADol HCl [Ultram] 50 - 100 mg PO Q4-6H PRN #90 tab 04/08/17 [Rx] HYDROmorphone [Dilaudid] 2 mg PO Q3HR PRN tab 04/10/17 [Rx] traMADol HCl [Ultram] 50 mg PO Q4HR PRN tab 04/10/17 [Rx] Follow up Appointment(s)/Referral(s): Christoph Hinojosa DO [Doctor of Osteopathic Medicine] - 05/06/17 1:00 pm (3-4 weeks) Michelle Redmond [NON-STAFF] - 1 Week Activity/Diet/Wound Care/Special Instructions: Weightbearing as tolerated with walker Follow up with Dr. Hinojosa in 3-4 weeks. Call [facility] with any questions or concerns, Discharge Disposition: TRANSFER TO SNF/ECF
[2017-04-10 18:41] VITALS: PULSE 71
== END 2017-04-10 19:11 | DRG 563 ==
LOC: INTOOBSV 12:51 → 3SUR 12:51 → OBSVTOIN 04-08 08:47
PROVIDERS: ADMIT Orthopaedic Surgery; ATTEND Orthopaedic Surgery
DX: S86.912A Strain of unspecified muscle(s) and tendon(s) at lower leg level, left leg, initial encounter (principal); C92.10 Chronic myeloid leukemia, BCR/ABL-positive, not having achieved remission; I48.2 Chronic atrial fibrillation; E86.0 Dehydration; G62.9 Polyneuropathy, unspecified; D63.0 Anemia in neoplastic disease; E78.5 Hyperlipidemia, unspecified; F41.9 Anxiety disorder, unspecified; M62.838 Other muscle spasm; K76.9 Liver disease, unspecified; R32 Unspecified urinary incontinence; G43.909 Migraine, unspecified, not intractable, without status migrainosus; H91.90 Unspecified hearing loss, unspecified ear; I10 Essential (primary) hypertension; K21.9 Gastro-esophageal reflux disease without esophagitis; M19.91 Primary osteoarthritis, unspecified site; K59.00 Constipation, unspecified; R19.7 Diarrhea, unspecified; M16.12 Unilateral primary osteoarthritis, left hip; Z79.01 Long term (current) use of anticoagulants; Z79.899 Other long term (current) drug therapy; Z96.641 Presence of right artificial hip joint; Z96.653 Presence of artificial knee joint, bilateral; Z85.820 Personal history of malignant melanoma of skin; Z85.528 Personal history of other malignant neoplasm of kidney; Z90.710 Acquired absence of both cervix and uterus; Z90.5 Acquired absence of kidney; Z98.42 Cataract extraction status, left eye; Z98.41 Cataract extraction status, right eye; Z87.01 Personal history of pneumonia (recurrent); Z86.73 Personal history of transient ischemic attack (TIA), and cerebral infarction without residual deficits; Z90.49 Acquired absence of other specified parts of digestive tract; Z88.2 Allergy status to sulfonamides; W19.XXXA Unspecified fall, initial encounter; Y92.009 Unspecified place in unspecified non-institutional (private) residence as the place of occurrence of the external cause
CPT/HCPCS: 71260; 72110; 74177; 78306; 80048; 80053; 85025; 85652; 86140

== ENCOUNTER 2017-04-18 08:57 | Day surgery (SDC) | payer MEDICARE ==
--- NOTE | 2017-04-18 13:08 | US ---
Discontinued liver biopsy HISTORY: Liver masses Upon discussion with the patient about the risks and benefits of the procedure, the patient elects to defer biopsy at this time IMPRESSION: Aborted biopsy
== END 2017-04-18 10:55 | disposition home or self-care (01) ==
LOC: RADPROMAIN 08:57
PROVIDERS: ATTEND Internal Medicine Hematology & Oncology
DX: C38.1 Malignant neoplasm of anterior mediastinum (principal); Z53.8 Procedure and treatment not carried out for other reasons
CPT/HCPCS: 36415; 76705